=== PATIENT | female | born 1970 | race Caucasian/White ===

== ENCOUNTER 2023-12-06 10:32 | Emergency (ER) | payer MEDICARE, OTHER, SELFPAY ==
[2023-12-06 10:57] VITALS: BP 146/75
--- NOTE | 2023-12-06 11:56 | ED.GENMED ---
History of Present Illness
<Tanvi Jorge PA-C - Last Filed: 12/06/23 18:19>
General
Chief Complaint: Urinary Symptoms
Source: patient
Exam Limitations: none
Time Seen by Provider: 12/06/23 11:45
Nursing documentation reviewed up to this point in time: agreed with
Travel History
Have you had any contact with someone who has COVID-19?: No
Do you have any symptoms of coronavirus? Fever > 100 degrees, chills, cough, shortness of breath, sore throat, loss of taste or smell, muscle aches, or headache?: No
History of Present Illness
History of Present Illness:
This is a 53-year-old female with past medical history of nephrolithiasis, A-fib on Eliquis, uterine cancer status post total hysterectomy, presenting to the ER today with pelvic pain x 2 weeks. Patient was seen by her family doctor 2 weeks ago and
was initially told she did not have a UTI. She was called back a few days later and was told she had a UTI and had E. coli on her culture. Patient states that she was started on Macrobid for twice a day for 5 days. She states that she finished
the course and she still had symptoms. She called her family doctor and was started again on another course of Macrobid, and she is 3 days into that, still with no improvement in symptoms. She denies fevers or chills, flank pain, nausea or
vomiting, dysuria, vaginal discharge, vaginal pain. Does admit to urinary urgency at times. Patient denies diarrhea/constipation.
Past History
<Tanvi Jorge PA-C - Last Filed: 12/06/23 18:19>
Past History
ED Past Medical History: Arrthythmia (Atrial fib) and Other (History of kidney stones, IBS)
ED Past Surgical History: Gynecological (Hysterectomy)
Social History
Tobacco: Former smoker
Alcohol: None
Drug: None
Personal:
Living: with family
Employment: Employed
Family History
Family History: Other (Noncontributory)
Review of Systems
<Tanvi Jorge PA-C - Last Filed: 12/06/23 18:19>
Review of Systems
All Other Systems: ROS reviewed and negative except as documented in HPI and ROS
Phy Exam
<Tanvi Jorge PA-C - Last Filed: 12/06/23 18:19>
Physical Exam
Physical Exam:
Vitals: vital signs are stable, patient is afebrile
General: Patient is well-appearing and in no acute distress
Skin: warm and dry, no rashes or lesions
Cardiac: regular rate and rhythm, no murmurs
Pulm: normal respiratory effort
Abdomen: no abdominal tenderness
Neuro: AAOx3. CN II-XII intact.
Course
<Tanvi Jorge PA-C - Last Filed: 12/06/23 18:19>
Orders/Labs/Results
Orders:
Orders
12/06/23 11:55
Basic Metabolic Panel Urgent
Complete Blood Count/With Diff Urgent
Urinalysis Reflex To Culture Urgent
Date Specimen was Collected: 12/06/23
Time Specimen was Collected: 11:20
Urine Culture Urgent
ZOYA Source: U
Specimen Description:
Date Specimen was Collected: 12/06/23
Time Specimen was Collected: 11:20
12/06/23 12:48
CT Abd/pelvis W Iv Cont Urgent
Reason For Exam: persistent pelvic pain, hx of total hysterectomy
12/06/23 13:20
Potassium Urgent
12/06/23 14:44
Add On - Microbiology Urgent
Tests Added?: urine culture
Abnormal Lab Results
12/06/23
11:55
Absolute Monos (auto) 0.7 H 10^3/uL
(0.1-0.6)
Sodium 134 L mmol/L
(135-145)
BUN 20 H mg/dl
(7-17)
Creatinine 0.5 L mg/dL
(0.6-1.0)
Glucose 224 H mg/dl
(70-99)
Urine Glucose 3+ A
(Negative)
12/06/23 11:55
12/06/23 13:20
Vital Signs
Initial and Last Documented VS:
Initial Vital Signs
Temp Pulse Resp BP Pulse Ox
98.6 F 70 16 146/75 98
12/06/23 10:57 12/06/23 10:57 12/06/23 10:57 12/06/23 10:57 12/06/23 10:57
Last Documented Vital Signs
Temp Pulse Resp BP Pulse Ox
98.6 F 70 16 146/75 98
12/06/23 10:57 12/06/23 10:57 12/06/23 10:57 12/06/23 10:57 12/06/23 10:57
<Bryon Sanchez DO - Last Filed: 12/06/23 15:40>
Orders/Labs/Results
Orders:
Orders
12/06/23 11:55
Basic Metabolic Panel Urgent
Complete Blood Count/With Diff Urgent
Urinalysis Reflex To Culture Urgent
Date Specimen was Collected: 12/06/23
Time Specimen was Collected: 11:20
Urine Culture Urgent
ZOYA Source: U
Specimen Description:
Date Specimen was Collected: 12/06/23
Time Specimen was Collected: 11:20
12/06/23 12:48
CT Abd/pelvis W Iv Cont Urgent
Reason For Exam: persistent pelvic pain, hx of total hysterectomy
12/06/23 13:20
Potassium Urgent
12/06/23 14:44
Add On - Microbiology Urgent
Tests Added?: urine culture
Abnormal Lab Results
12/06/23
11:55
Absolute Monos (auto) 0.7 H 10^3/uL
(0.1-0.6)
Sodium 134 L mmol/L
(135-145)
BUN 20 H mg/dl
(7-17)
Creatinine 0.5 L mg/dL
(0.6-1.0)
Glucose 224 H mg/dl
(70-99)
Urine Glucose 3+ A
(Negative)
12/06/23 11:55
12/06/23 13:20
Vital Signs
Initial and Last Documented VS:
Initial Vital Signs
Temp Pulse Resp BP Pulse Ox
98.6 F 70 16 146/75 98
12/06/23 10:57 12/06/23 10:57 12/06/23 10:57 12/06/23 10:57 12/06/23 10:57
Last Documented Vital Signs
Temp Pulse Resp BP Pulse Ox
98.6 F 70 16 146/75 98
12/06/23 10:57 12/06/23 10:57 12/06/23 10:57 12/06/23 10:57 12/06/23 10:57
<Tanvi Jorge PA-C - Last Filed: 12/06/23 18:19>
MDM/Problems Addressed
Differential Diagnosis Includes:
ddx include urinary tract infection, interstitial cystitis, cystocele, rectocele
MDM/Problems Addressed:
pelvic pressure

Chronic conditions affecting care: HTN, Arrhythmia (afib), Cancer (uterine cancer) and Other (nephrolithiasis)
Acute Exacerbation and/or Progression of Chronic Illness: HTN
<Tanvi Jorge PA-C - Last Filed: 12/06/23 18:19>
*Pulse Oximetry
Patient hypoxic: no
*Critical Care Note
Total Time (30-74mins, 75-104mins- exclusive of procedures): Not Applicable
Data Reviewed
Review of Other/Old Records Reveals: Records (reviewed ER physician documentation from 09/23/2023, reviewed ER Physician documentation from 08/21/2023)
Source: patient and records
Prescriptions/Medications Considered But Not Given:
considered switching antibiotic to Keflex however urinalysis does not show evidence of UTI
<Tanvi Jorge PA-C - Last Filed: 12/06/23 18:19>
Patient Management
Escalation/DeEscalation of care consider admission/obs:
53-year-old female with past medical history of nephrolithiasis, A-fib on Eliquis presenting emergency department today with pelvic pressure for the past 2 weeks. Patient states that she originally was seen by her PCP 2 weeks ago, where she tested
positive for UTI, and was started on a course of Macrobid. Patient states that she was on this for 5 days. Here in the emergency department, she is afebrile, and her vital signs are stable. Her CBC does not show leukocytosis. Her urinalysis did
not show any evidence of UTI. Spoke and reviewed case with Dr. Sanchez who recommends CT of the pelvis for further evaluation. CT revealed no acute abnormality to explain patient's symptoms. I suspect her symptoms are a result of pelvic
floor weakness. We will have patient follow-up with urogynecology. In addition, she had high per glycemia on her CMP and some glucose in her urine. Patient has no diabetes diagnosis. Educated patient on the importance of having follow-up on this
finding, patient will follow-up with her PCP regarding this. Patient is wishing to establish a new PCP, we gave her information for [facility]. Patient will for discharge
ED Attending Note
<Tanvi Jorge PA-C - Last Filed: 12/06/23 18:19>
-
Portions of this chart may have been created with voice recognition software.� Occasional wrong word or��sound alike� substitutions may have occurred due to the inherent limitations of voice recognition software.
<Bryon Sanchez DO - Last Filed: 12/06/23 15:40>
ED Attending Note
Patient seen and examined by attending physician: Yes
I performed the substantive portion of visit, reviewed & personally made and approve the management plan that is documented in note by myself or JOAQUINA.: Yes
ED Attending Note:
Patient is a 53-year-old female who presents to the emergency department complaining of urinary urgency and pressure in her lower abdomen. Patient has a history of hysterectomy with bilateral salpingo-oophorectomy secondary to uterine cancer
approximately 4 years ago. Patient started with the symptoms few weeks ago and was treated with Macrobid because of UTI secondary to E. coli. Patient continued symptoms and was treated with a second course of Macrobid. Patient now presents
because of ongoing issues. Patient denies fever or chills. Patient denies any back or abdominal pain other than lower abdominal pressure. Patient denies nausea, vomiting or diarrhea. Patient denies any dysuria or hematuria but admits to urgency
and frequency. Physical exam patient is not in any distress. Patient lab work is unremarkable including the urine. However will do a urine culture at the patient's request. His CT scan is unremarkable. I suspect the patient has a cystocele as
she has had 2 vaginal deliveries along with a hysterectomy. Patient referred to urogynecology for further evaluation. Patient's vital signs are stable. Patient's sugar is elevated which has been running high recently but I have suggested the
patient return to see her family doctor as she might require medical intervention
Discharge Plan
Departure
Patient Disposition: Home (Routine Discharge)
Date of Disposition: 12/06/23
Time of Disposition: 15:23
Patient with high blood pressure during this ER visit?: Yes
Condition: Good
Discharge Problem:
Pelvic pain
Instructions: High Blood Sugar, Adult (DC), Pelvic Pain, BLOOD PRESSURE
Prescriptions:
No Action
Eliquis 5 MG tablet
5 mg PO BID
flecainide
100 mg PO BID
metoprolol succinate
25 mg PO BID
magnesium
500 mg PO DAILY
Referrals:
Ofelia Dan, DO [Active] - Call in 1-3 days for appt
NONE,* [Family Provider] -
Activity Restrictions/Additional Instructions:
As discussed, please follow-up with urogynecology. Please return to the emergency department should you experience
Fevers or chills, flank pain, acute worsening of your pain, or other concerning signs or symptoms
Your blood sugar today was high. Is important that you follow-up on this finding with your primary care provider. This may be a sign of prediabetes.
Number for [facility]: [phone]
Number for urogynecology: [phone]
Interventions
Interventions:
*Risk Screen - Suicide Last Done: 12/06/23 15:09
*General Assessment Last Done: 12/06/23 15:09
*Neglect/Abuse Screening Last Done: 12/06/23 15:09
*ED COVID-19 Vaccine History Last Done: 12/06/23 10:57
*Nursing Disposition Last Done: 12/06/23 15:10
ED-Female Genitourinary Assessment Last Done: 12/06/23 12:00
Discharge Date and Time
Discharge Date/Time: 12/06/23 15:38
[2023-12-06 12:07] LABS: % Basophils 0.8 % (0-2); % Eosinophils 3.2 % (0-6); % Immature Granulocytes 0.3 % (0-0.5); % Lymphocytes 30.8 % (20.5-51.1); % Neutrophils 57.9 % (42.2-75.2); Absolute Basophils 0.1 10^3/uL (0-0.2); Absolute Eosinophils 0.3 10^3/uL (0-0.7); Absolute Lymphocytes 2.9 10^3/uL (1.2-3.4); Absolute Monocytes 0.7 10^3/uL (0.1-0.6); Absolute Neutrophils 5.5 10^3/uL (1.4-6.5); Hematocrit 43.7 % (37.0-47.0); Hemoglobin 14.4 g/dL (12.0-16.0); Mean Corpuscular Hgb 28.1 pg (27.0-31.0); Mean Corpuscular Volume 85.2 fL (81.0-99.0); Mean Platelet Volume 8.9 fL (7.4-10.4); Nucleated Red Blood Cells % 0 %; Platelet Count 320 10^3/uL (130-400); Red Blood Cell Count 5.13 10^6/uL (4.20-5.40); Red Cell Dist. Width 12.7 % (11.5-14.5); White Blood Cell Count 9.5 10^3/uL (4.8-10.8)
[2023-12-06 12:10] LABS: Urine Albumin Negative (Neg - Trace); Urine Bilirubin Negative (Negative); Urine Character Clear (Clear); Urine Color Yellow; Urine Glucose 3+ (Negative); Urine Ketone Negative (Negative); Urine Leukocyte Negative (Negative); Urine Nitrite Negative (Negative); Urine Occult Blood Negative (Negative); Urine Urobilinogen Negative (Neg - 1+)
[2023-12-06 12:27] LABS: Blood Urea Nitrogen 20 mg/dl (7-17); Calcium 9.3 mg/dl (8.4-10.2); Carbon Dioxide 25 mmol/L (22-30); Chloride 102 mmol/L (98-107); Glucose 224 mg/dl (70-99); Sodium 134 mmol/L (135-145); eGFR > 60.00
[2023-12-06 13:46] LABS: Potassium 3.9 mmol/L (3.5-5.1)
== END 2023-12-06 15:38 | disposition home or self-care (01) ==
LOC: EMR 10:32
PROVIDERS: Physician Assistant; EMERGENCY PHYSICIAN Emergency Medicine
DX: R10.2 Pelvic and perineal pain (principal); R03.0 Elevated blood-pressure reading, without diagnosis of hypertension; Z87.891 Personal history of nicotine dependence
CPT/HCPCS: 99285; 74177; 80048; 81003; 84132; 85025; 87086; Q9967

== ENCOUNTER 2023-12-26 09:18 | Emergency (ER) | payer MEDICARE, OTHER, SELFPAY ==
[2023-12-26 09:31] VITALS: BP 146/74
--- NOTE | 2023-12-26 10:07 | ED.GENMED ---
History of Present Illness
General
Chief Complaint: Heart Rate Problem
Source: patient
Exam Limitations: none
Time Seen by Provider: 12/26/23 09:53
Travel History
Have you had any contact with someone who has COVID-19?: No
Do you have any symptoms of coronavirus? Fever > 100 degrees, chills, cough, shortness of breath, sore throat, loss of taste or smell, muscle aches, or headache?: No
History of Present Illness
History of Present Illness:
See MDM
Past History
Past History
ED Past Medical History: Arrthythmia (Atrial fib) and Other (History of kidney stones, IBS)
ED Past Surgical History: Gynecological (Hysterectomy)
Social History
Tobacco: Former smoker
Alcohol: None
Drug: None
Personal:
Living: with family
Employment: Employed
Family History
Family History: Other (Noncontributory)
Phy Exam
Physical Exam
Physical Exam:
See MDM
Course
Orders/Labs/Results
Orders:
Orders
12/26/23 09:37
Electrocardiogram (*1) Urgent
Reason for Study: Chest Pain
EKG- Treatment ONCE
12/26/23 10:11
Complete Blood Count/With Diff Urgent
Comprehensive Metabolic Panel Urgent
TSH Reflex To Free T4 Urgent
12/26/23 10:51
0.9% Sodium Chloride 1000 ml [Nss] 1,000 ml IV BOLUS
Abnormal Lab Results
12/26/23
10:11
Creatinine 0.5 L mg/dL
(0.6-1.0)
Glucose 185 H mg/dl
(70-99)
Alkaline Phosphatase 139 H U/L
(38-126)
12/26/23 10:11
12/26/23 10:11
Vital Signs
Initial and Last Documented VS:
Initial Vital Signs
Temp Pulse Resp BP Pulse Ox
98.3 F 61 20 146/74 96
12/26/23 09:31 12/26/23 09:31 12/26/23 09:31 12/26/23 09:31 12/26/23 09:31
Last Documented Vital Signs
Temp Pulse Resp BP Pulse Ox
98.3 F 54 11 112/65 95
12/26/23 09:31 12/26/23 11:45 12/26/23 11:45 12/26/23 10:51 12/26/23 11:45
MDM/Problems Addressed
Differential Diagnosis Includes:
HPI and MDM Narrative:
53-year-old female presenting for evaluation of palpitations. This has been ongoing since this morning. Patient does have a history of A-fib. She came in because her surveillance monitor was telling her that she has supraventricular ectopy. Patient
states she has never known of having this and got worried. She does admit that she has been sick recently and been under a lot of stress
On evaluation, patient well-appearing nontoxic. EKG does show evidence of PVCs. She denies chest pain or shortness of breath. She denies any new medications.
Physical exam
General: Well appearing and non-toxic
HEENT: protecting airway. Mild nasal congestion. Dry mucous membranes
Neck: appears supple
CV: No evidence of cyanosis. Regular rate and rhythm
Resp: No accessory muscle use. Lungs clear
Abd: Non-distended
Extremities: No deformities. No leg edema
Neuro: alert
Psych: Normal affect
Skin: Intact
Problems Addressed including Acute and Chronic Conditions affecting care:
1. Palpitations
Acuity: acute
Prognosis: stable
Details: Patient likely having symptomatic PVCs. She is already on a beta-carlton. She has a history of A-fib but not currently in A-fib. Will obtain basic blood work but discussed reassurance and follow-up with cardiology
2. Hyperglycemia
Acuity: acute
Prognosis: stable
Details: Patient states she will follow-up with her doctor
3. Dehydration
Acuity: acute
Prognosis: stable
Details: Likely in the setting of increased urination from uncontrolled blood sugar. Will give IV fluids
Updates
Patient feeling better after IV fluids. Discussed talking to PCP about better blood sugar control and return precautions
Differential Diagnosis (but not limited to): Hypothyroidism, palpitations, paroxysmal A-fib, PVCs
Testing considered: CXR but lungs clear
Drug therapy (if applicable): OTC meds, please see d/c instruction regarding Rx drugs
Amount and/or Complexity of Data Reviewed
Clinical info obtained from: Patient
External data reviewed: N/A
Labs I independently reviewed (but not limited to): Hyperglycemia
Radiology: N/A
Pulse Ox: not hypoxic
EKG independently reviewed: Sinus rhythm, PVCs, no STEMI
[employer] Specialist: Sinus rhythm
Critical Care: N/A
Risk of Complication:
Social Determinants of health: Good social support
Discussed with other providers: N/A
Escalation of Care includes Admit/Obs: After being observed in the Emergency Department, pt stable for discharge.
Occasional wrong word or 'sound a like' substitutions may have occurred due to the inherent limitations of voice recognition software. Read the chart carefully and recognize, using context, where substitutions have occurred.
*Critical Care Note
Total Time (30-74mins, 75-104mins- exclusive of procedures): Not Applicable
ED Attending Note
-
Portions of this chart may have been created with voice recognition software.� Occasional wrong word or��sound alike� substitutions may have occurred due to the inherent limitations of voice recognition software.
Discharge Plan
Departure
Patient Disposition: Home (Routine Discharge)
Date of Disposition: 12/26/23
Time of Disposition: 12:21
Patient with high blood pressure during this ER visit?: No
Discharge Problem:
Palpitations, Acute dehydration, Hyperglycemia
Instructions: Palpitations (DC)
Prescriptions:
No Action
Eliquis 5 MG tablet
5 mg PO BID
flecainide
100 mg PO BID
metoprolol succinate
25 mg PO BID
magnesium
500 mg PO DAILY
Referrals:
Kat Garcias CRNP [Family Provider] -
Activity Restrictions/Additional Instructions:
Please return for any worsening symptoms.
You may return at any time if you have further concerns.
Please follow up with your doctor at the first available appointment, preferably this week.
Please talk to your doctor about your elevated blood sugar as well.
Thank you for choosing [facility].
Interventions
Interventions:
*Risk Screen - Suicide Last Done: 12/26/23 09:31
*General Assessment Last Done: 12/26/23 09:31
*Neglect/Abuse Screening Last Done: 12/26/23 09:48
*ED COVID-19 Vaccine History Last Done: 12/26/23 09:48
ED- Cardiac Assessment Last Done: 12/26/23 09:59
ED- Pulmonary Assessment Last Done: 12/26/23 10:00
[2023-12-26 10:19] LABS: % Basophils 0.7 % (0-2); % Eosinophils 3.2 % (0-6); % Immature Granulocytes 0.5 % (0-0.5); % Lymphocytes 36.2 % (20.5-51.1); % Monocytes 6.4 % (1.7-9.3); Absolute Basophils 0.1 10^3/uL (0-0.2); Absolute Eosinophils 0.3 10^3/uL (0-0.7); Absolute Lymphocytes 2.9 10^3/uL (1.2-3.4); Absolute Monocytes 0.5 10^3/uL (0.1-0.6); Absolute Neutrophils 4.3 10^3/uL (1.4-6.5); Hematocrit 40.9 % (37.0-47.0); Hemoglobin 13.5 g/dL (12.0-16.0); Mean Corpuscular Hgb 27.7 pg (27.0-31.0); Mean Corpuscular Volume 83.8 fL (81.0-99.0); Mean Platelet Volume 8.7 fL (7.4-10.4); Nucleated Red Blood Cells % 0 %; Platelet Count 307 10^3/uL (130-400); Red Blood Cell Count 4.88 10^6/uL (4.20-5.40); Red Cell Dist. Width 12.7 % (11.5-14.5); White Blood Cell Count 8.1 10^3/uL (4.8-10.8)
[2023-12-26 10:26] VITALS: BP 94/68
[2023-12-26 10:34] LABS: ALT (SGPT) 17 U/L (0-35); AST (SGOT) 24 U/L (14-36); Albumin 3.8 g/dl (3.5-5.0); Alkaline Phosphatase 139 U/L (38-126); Blood Urea Nitrogen 14 mg/dl (7-17); Calcium 8.8 mg/dl (8.4-10.2); Carbon Dioxide 26 mmol/L (22-30); Chloride 104 mmol/L (98-107); Glucose 185 mg/dl (70-99); Potassium 3.9 mmol/L (3.5-5.1); Sodium 135 mmol/L (135-145); Total Bilirubin 0.4 mg/dl (0.2-1.3); Total Protein 6.5 g/dl (6.3-8.2); eGFR > 60.00
[2023-12-26 10:51] VITALS: BP 112/65
[2023-12-26] MEDS: NSS 1000 IV (11:02)
[2023-12-26 11:04] LABS: TSH Reflex To Free T4 1.39 uIU/ml (0.47-4.68)
[2023-12-26 11:50] VITALS: BP 116/59
--- NOTE | 2023-12-26 12:35 | EDRN ---
Per Dr Emanuel- check you BP yonite BEFORE taking your metoprolol. If the HR is less than 50 OR BP is less than 100/sys.. call PCP- they may suggest only a 1/2 tab
== END 2023-12-26 12:36 | disposition home or self-care (01) ==
LOC: EMR 09:18
PROVIDERS: EMERGENCY PHYSICIAN Student in an Organized Health Care Education/Training Program; FAMILY PHYSICIAN Nurse Practitioner Family
DX: R00.2 Palpitations (principal); E86.0 Dehydration; R73.9 Hyperglycemia, unspecified
CPT/HCPCS: 99284; 96360; 80053; 84443; 85025; 93005

== ENCOUNTER 2024-02-21 15:18 | Inpatient (IN) | payer MEDICARE, OTHER, SELFPAY ==
[2024-02-21] VITALS (20 sets, daily range): BP systolic 88–142; BP diastolic 47–85; BMI 36.2
[2024-02-21 08:02] LABS: % Basophils 1.1 % (0-2); % Eosinophils 2.7 % (0-6); % Immature Granulocytes 0.4 % (0-0.5); % Lymphocytes 33.6 % (20.5-51.1); % Monocytes 6.9 % (1.7-9.3); % Neutrophils 55.3 % (42.2-75.2); Absolute Basophils 0.1 10^3/uL (0-0.2); Absolute Eosinophils 0.2 10^3/uL (0-0.7); Absolute Lymphocytes 2.7 10^3/uL (1.2-3.4); Absolute Monocytes 0.6 10^3/uL (0.1-0.6); Absolute Neutrophils 4.5 10^3/uL (1.4-6.5); Hematocrit 42.5 % (37.0-47.0); Hemoglobin 14.2 g/dL (12.0-16.0); Mean Corp Hgb Conc. 33.4 g/dL (33.0-37.0); Mean Corpuscular Hgb 28.2 pg (27.0-31.0); Mean Corpuscular Volume 84.5 fL (81.0-99.0); Nucleated Red Blood Cells % 0 %; Platelet Count 288 10^3/uL (130-400); Red Blood Cell Count 5.03 10^6/uL (4.20-5.40); Red Cell Dist. Width 13.2 % (11.5-14.5); White Blood Cell Count 8.1 10^3/uL (4.8-10.8)
[2024-02-21 08:08] LABS: Urine Albumin Negative (Neg - Trace); Urine Bilirubin Negative (Negative); Urine Character Clear (Clear); Urine Color Yellow; Urine Glucose Negative (Negative); Urine Ketone Negative (Negative); Urine Leukocyte Negative (Negative); Urine Nitrite Negative (Negative); Urine Occult Blood Negative (Negative); Urine Urobilinogen Negative (Neg - 1+)
[2024-02-21 08:09] LABS: ALT (SGPT) 15 U/L (0-35); AST (SGOT) 20 U/L (14-36); Albumin 3.7 g/dl (3.5-5.0); Alkaline Phosphatase 123 U/L (38-126); Blood Urea Nitrogen 13 mg/dl (7-17); Calcium 8.8 mg/dl (8.4-10.2); Carbon Dioxide 25 mmol/L (22-30); Chloride 107 mmol/L (98-107); Glucose 191 mg/dl (70-99); Potassium 3.9 mmol/L (3.5-5.1); Sodium 137 mmol/L (135-145); Total Bilirubin 0.3 mg/dl (0.2-1.3); Total Protein 6.3 g/dl (6.3-8.2); eGFR > 60.00
[2024-02-21] MEDS: CARDIZEM 125 IV ×2 (08:11→18:41)
[2024-02-21] MEDS: CARDIZEM 10 MG IV (08:11)
[2024-02-21] MEDS: NSS 1000 IV (08:20)
--- NOTE | 2024-02-21 08:22 | ED.GENMED ---
Addendum entered and electronically signed by Marquise Prasad DO 02/21/24 14:18:
53-year-old female presents with atrial flutter. Attempted Cardizem with success in controlling her rate but unable to convert her. Offered emergency department cardioversion but patient is concerned about risks and would like to forego at this
time. She states in the past she has been able to convert on her own. Admit. Continue Cardizem. Continue Eliquis
Original Note:
History of Present Illness
General
Chief Complaint: Heart Rate Problem
Source: patient and family
Exam Limitations: none
Time Seen by Provider: 02/21/24 07:13
Travel History
Have you had any contact with someone who has COVID-19?: No
Do you have any symptoms of coronavirus? Fever > 100 degrees, chills, cough, shortness of breath, sore throat, loss of taste or smell, muscle aches, or headache?: No
History of Present Illness
History of Present Illness:
This is a 53-year-old female presents for evaluation of being in atrial fibrillation. Patient states she woke up this morning and felt like she did when she is in atrial fibrillation. Patient is on Eliquis. She is due for morning medications at
11 AM. The patient is also on flecainide. Patient admits that she is in between cardiologists. She used her home heart monitor and it noted irregularity. Her heart rate was up to the 130s at home. She states that while but she mostly feels
normal but sometimes with walking she feels little short of breath. No vomiting.
Past History
Past History
ED Past Medical History: Arrthythmia (Atrial fib) and Other (History of kidney stones, IBS)
ED Past Surgical History: Gynecological (Hysterectomy)
Social History
Tobacco: Former smoker
Alcohol: None
Drug: None
Personal:
Living: with family
Employment: Employed
Family History
Family History: Other (Noncontributory)
Phy Exam
Physical Exam
Physical Exam:
CONSTITUTIONAL Patient alert and oriented to person, place and time. Well-appearing. Vital signs reviewed.
HEAD atraumatic, normocephalic.
EYES eyelids normal to inspection, Extraocular muscles intact, Conjunctiva normal, Sclera normal.
NECK normal range of motion, Trachea midline, no jugular venous distention.
RESPIRATORY CHEST No respiratory distress noted, Chest expansion equal, Bilateral breath sounds clear.
CARDIOVASCULAR irregular, a flutter with variable block on telemetry, no notable murmurs.
BACK normal inspection, no obvious deformities
UPPER EXTREMITY range of motion normal, Motor strength normal, no cyanosis, no edema.
LOWER EXTREMITY range of motion normal, Motor strength normal, no cyanosis, no edema.
NEURO Speech normal, No focal motor deficits, Nilesh coma scale 15, Memory normal, Cranial Nerves intact to screening exam.
SKIN skin warm, dry, and normal in color.
PSYCHIATRIC patient oriented to person place and time, Normal affect.
Course
Orders/Labs/Results
Orders:
Orders
02/21/24 06:32
Electrocardiogram (*1) Urgent
Reason for Study: Atrial Fibrillation
EKG- Treatment ONCE
02/21/24 07:40
Diltiazem 125 mg/125 ml Nss [Cardizem] 125 mg in 125 ml IV NOW
Initial dose in mg/hr, then titrate:: 5
Titrate to keep:: Heart rate 80-100 bpm
Titrate by mg/hr:: 5 mg/hr
Frequency of titrations (minutes):: 15
Maximum dose in mg/hr:: 15
Diltiazem HCl [Cardizem] 10 mg IV NOW STA
02/21/24 07:43
Complete Blood Count/With Diff Urgent
Comprehensive Metabolic Panel Urgent
Magnesium Urgent
02/21/24 07:59
Urinalysis Reflex To Culture Urgent
Date Specimen was Collected: 02/21/24
Time Specimen was Collected: 07:46
02/21/24 08:11
0.9% Sodium Chloride 1000 ml [Nss] 1,000 ml IV BOLUS
Abnormal Lab Results
02/21/24
07:43
Creatinine 0.4 L mg/dL
(0.6-1.0)
Glucose 191 H mg/dl
(70-99)
02/21/24 07:43
02/21/24 07:43
Vital Signs
Initial and Last Documented VS:
Initial Vital Signs
Temp Pulse Resp BP Pulse Ox
99.2 F 111 20 142/83 96
02/21/24 06:38 02/21/24 06:38 02/21/24 06:38 02/21/24 06:38 02/21/24 06:38
Last Documented Vital Signs
Temp Pulse Resp BP Pulse Ox
99.2 F 123 17 109/73 92
02/21/24 06:38 02/21/24 08:11 02/21/24 07:45 02/21/24 08:11 02/21/24 07:45
MDM/Problems Addressed
MDM/Problems Addressed:
Atrial flutter
*Pulse Oximetry
Patient hypoxic: no
*EKG
Interpreted by ED Provider?: Yes
Interpretation: abnormal
Rate: tachycardiac
Rhythm: atrial flutter
[place]: normal axis
Ischemia: non-specific ST changes
*Manager Call Interpretation
Rate: tachycardiac
Interpretation: abnormal
Rhythm: atrial flutter
*Critical Care Note
Total Time (30-74mins, 75-104mins- exclusive of procedures): Not Applicable
Data Reviewed
Source: patient
Prescriptions/Medications Considered But Not Given:
Considered IV flecainide but will continue her normal flecainide dose
Further Testing Considered But Not Given:
Consider D-dimer but patient on Eliquis
ED Attending Note
-
Portions of this chart may have been created with voice recognition software.� Occasional wrong word or��sound alike� substitutions may have occurred due to the inherent limitations of voice recognition software.
Discharge Plan
Departure
Prescriptions:
No Action
flecainide 100 mg Tablet
100 mg PO BID
magnesium oxide 500 mg magnesium Tablet
500 mg PO HS
metoprolol succinate 25 mg Tablet Extended Release 24 Hr
25 mg PO BID
carboxymethylcellulose sodium [Refresh] 1 % Drops, Liquid Gel
1 - 3 drp BOTH EYES QIDPRN PRN (Reason: dry eyes)
cholecalciferol (vitamin D3) 25 mcg (1,000 unit) Tablet
25 mcg PO DAILY
Eliquis 5 mg Tablet
5 mg PO Q12H
Referrals:
Riana Parsons CRNP [Family Provider] -
Interventions
Interventions:
*General Assessment Last Done: 02/21/24 06:45
*Neglect/Abuse Screening Last Done: 02/21/24 06:46
*ED COVID-19 Vaccine History Last Done: 02/21/24 06:45
Discharge Date and Time
Print Language: FAROESE
[2024-02-21] MEDS: TAMBOCOR 100 MG PO ×2 (10:50→21:02)
[2024-02-21] MEDS: CARDIZEM 20 MG IV (12:20)
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
[2024-02-21] MEDS: ELIQUIS 5 MG PO (18:24)
[2024-02-21 21:01] LABS: Glucose - Point of Care 240 mg/dl (70-99)
[2024-02-21] MEDS: NOVOLOG FLEXPEN-LOW RESISTANCE SC (21:05)
[2024-02-21] MEDS: MAGNESIUM OXIDE 500 MG PO (21:05)
[2024-02-21] MEDS: TYLENOL 650 MG PO (23:00)
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
[2024-02-22] VITALS (9 sets, daily range): BP systolic 87–117; BP diastolic 54–80
[2024-02-22] MEDS: CARDIZEM 125 IV (03:17)
[2024-02-22 03:24] LABS: Hematocrit 43.5 % (37.0-47.0); Hemoglobin 14.8 g/dL (12.0-16.0); Mean Corpuscular Hgb 28.6 pg (27.0-31.0); Mean Platelet Volume 9.1 fL (7.4-10.4); Platelet Count 325 10^3/uL (130-400); Red Blood Cell Count 5.18 10^6/uL (4.20-5.40); Red Cell Dist. Width 13.2 % (11.5-14.5); White Blood Cell Count 10.5 10^3/uL (4.8-10.8)
[2024-02-22 04:09] LABS: TSH 2.43 uIU/ml (0.47-4.68)
--- NOTE | 2024-02-22 05:54 | PTCARENOTE ---
4.57 sec pause and converted to SB @ 0530 HR 50s BP 80s-90s/60s. pt sleeping at the time asymptomatic. Dr. Miller aware
[2024-02-22] MEDS: ELIQUIS 5 MG PO ×2 (06:05→17:18)
[2024-02-22 07:35] LABS: Glucose - Point of Care 171 mg/dl (70-99)
--- NOTE | 2024-02-22 07:41 | W.PN.HOSP.TC ---
Addendum entered and electronically signed by Aimee Rodriguez MD 02/22/24 16:45:
pt seen and examined independently--agree with plan as set forth by Dr. Ruano
GENERAL: well developed, well nourished, female in no apparent distress
HEENT: NC--scar on right forehead--blind in right eye
HEART: regular rate and rhythm with ectopy, +S1, +S2
LUNGS : clear to auscultation bilaterally
ABDOM: soft, nontender, nondistended, + bowel sounds
EXT: no cyanosis, clubbing, or edema
Symptomatic Atrial flutter/atrial fibrillation --pt feels uncomfortable when she is in this--converted back to NSR on her own--off cardizem drip--apprec cards--cont flecanide, metoprolol, Eliquis--ECHO essentially WNL--large pleural effusion noted
but exam and CXR not consistent
Hyperglycemia (likely now type 2 DM)---Blood glucose 190 on admission--hemoglobin A1c 7.5--Low-dose insulin sliding scale--spoke with pt regarding starting metformin or glimepiride--pt hesitant
HLD--pt hesitant to start statins
DVT prophylaxis-continue Eliquis
code status -- FULL CODE
anticipate d/c tomorrow
Original Note:
Today's Communication/Plan
-
Discharge tomorrow
Assessment / Plan
Assessment / Plan
IMPRESSION:
Atrial Flutter/afib
Hyperglycemia
Hypercholesterolemia
PLAN:
Atrial flutter/atrial fibrillation
Patient is hemodynamically stable
Sinus rhythm, converted on her own on Cardizem gtt
Off Cardizem drip
Discussed patient about discharge, patient was uncomfortable to go home today and would wait for another day.
Echo showed large left pleural effusion. Chest x-ray was unremarkable
Possible discharge tomorrow
Continue flecainide 100 mg PO BID for rhythm control
TSH normal.
Follow-up outpatient with cardiology
EKG 02/20 on admission- ATRIAL FLUTTER WITH VARIABLE A-V BLOCK
Type 2 diabetes mellitus
A1c 7.5
Discussed with patient about options #1 metformin No. 2 glimepiride
Patient was not happy with the medication list as she has side effects with metformin
In the past she was diagnosed with diabetes and tried to control it with diet
Further discussion with outpatient PCP
Low-dose insulin sliding scale
Hypercholesterolemia
Increased TG, increased cholesterol
ASCVD risk less than 7.5%
Patient is a candidate for statin therapy for uncontrolled diabetes
Further discussion with outpatient PCP
DVT prophylaxis-continue Eliquis
Anticipated Discharge: Within 24 hours
Subjective/Interval History
-
date of Service: February 22, 2024
Patient was in atrial flutter overnight and converted by herself this morning at 5:30 AM.
Objective Data
-
Labs:
Laboratory Results
02/22/24 02/22/24
03:14 07:03
WBC 10.5
Hgb 14.8
Hct 43.5
Plt Count 325
Sodium Cancelled Pending
Potassium Cancelled Pending
Chloride Cancelled Pending
Carbon Dioxide Cancelled Pending
BUN Cancelled Pending
Creatinine Cancelled Pending
Glucose Cancelled Pending
Calcium Cancelled Pending
Vital Signs:
Vital Signs
Temp Pulse Resp BP Pulse Ox
98.2 F 61 18 91/63 93
02/22/24 03:23 02/22/24 06:53 02/22/24 03:23 02/22/24 06:53 02/22/24 03:23
Review of Systems
-
History Source: Patient
All other systems: Reviewed and negative
Physical Exam
-
General: Comfortable and Conversant
HEENT: Normocephalic and Atraumatic
Respiratory: Clear to Auscultation
Cardiac: Regular Rhythm and S1/S2
GI: Soft, Nontender and Nondistended
Musculoskeletal: No Edema
Neuro: AO x 3
Data Reviewed
-
Medical Tests (Nuc Med, Echo etc): Report Reviewed by me and Discussed with Physician
Labs: Labs Reviewed by me and Discussed with Physician
[2024-02-22] MEDS: TAMBOCOR 100 MG PO ×2 (08:00→19:42)
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
[2024-02-22] MEDS: TOPROL XL 25 MG PO ×2 (09:17→19:42)
[2024-02-22] MEDS: NOVOLOG FLEXPEN-LOW RESISTANCE 1 UNITS SC (09:18)
[2024-02-22 09:41] LABS: Blood Urea Nitrogen 12 mg/dl (7-17); Calcium 9.1 mg/dl (8.4-10.2); Carbon Dioxide 25 mmol/L (22-30); Chloride 105 mmol/L (98-107); Estimated Creatinine Clearance 115 ml/min; Glucose 170 mg/dl (70-99); HDL Cholesterol 39 mg/dl; LDL Cholesterol, Calculated 126 mg/dl; Potassium 3.8 mmol/L (3.5-5.1); Sodium 134 mmol/L (135-145); Total Cholesterol 202 mg/dl (50-199); Triglyceride 188 mg/dl (10-149); Very Low Density Lipoprotein 37 mg/dl (0-30); eGFR > 60.00
[2024-02-22 10:25] LABS: Glycohemoglobin (HgbA1c) 7.5 % (4.0-5.6)
--- NOTE | 2024-02-22 11:32 | CM ---
Chart reviewed. Patient is independent of ADLS, lives with her son and daughter in a 3 [address], 3 [address], 0 DME. Patient currently with no discharge needs. Plan is for the patient to return home. CM to follow
[2024-02-22 11:48] LABS: Glucose - Point of Care 263 mg/dl (70-99)
[2024-02-22] MEDS: NOVOLOG FLEXPEN-LOW RESISTANCE 3 UNITS SC (11:58)
[2024-02-22 16:20] LABS: Glucose - Point of Care 137 mg/dl (70-99)
[2024-02-22] MEDS: NOVOLOG FLEXPEN-LOW RESISTANCE SC (17:18)
--- NOTE | 2024-02-22 18:05 | PTCARENOTE ---
Pt NSR on monitor. Ambulating in room and in hallway. Pt denies pain, denies sob. See worklist for VS/I and O and assessments.
[2024-02-22 21:15] LABS: Glucose - Point of Care 153 mg/dl (70-99)
--- NOTE | 2024-02-22 21:53 | PTCARENOTE ---
Denies any complaints of pain or discomfort. Ambulating in hallways. SR in the 70's on the monitor.
[2024-02-22] MEDS: MAGNESIUM OXIDE 500 MG PO (22:18)
[2024-02-23 04:33] VITALS: BP 100/57
[2024-02-23 05:04] LABS: Hematocrit 41.5 % (37.0-47.0); Hemoglobin 13.6 g/dL (12.0-16.0); Mean Corp Hgb Conc. 32.8 g/dL (33.0-37.0); Mean Corpuscular Hgb 28.3 pg (27.0-31.0); Mean Corpuscular Volume 86.5 fL (81.0-99.0); Mean Platelet Volume 9.2 fL (7.4-10.4); Platelet Count 276 10^3/uL (130-400); Red Cell Dist. Width 13.2 % (11.5-14.5); White Blood Cell Count 8.9 10^3/uL (4.8-10.8)
[2024-02-23 05:27] LABS: Blood Urea Nitrogen 16 mg/dl (7-17); Calcium 9.4 mg/dl (8.4-10.2); Carbon Dioxide 24 mmol/L (22-30); Chloride 104 mmol/L (98-107); Estimated Creatinine Clearance 115 ml/min; Glucose 142 mg/dl (70-99); Potassium 3.8 mmol/L (3.5-5.1); Sodium 135 mmol/L (135-145); eGFR > 60.00
[2024-02-23] MEDS: ELIQUIS 5 MG PO (05:51)
[2024-02-23 05:56] VITALS: BMI 35.3
[2024-02-23 07:22] VITALS: BP 105/59
[2024-02-23 07:24] LABS: Glucose - Point of Care 180 mg/dl (70-99)
[2024-02-23] MEDS: TAMBOCOR 100 MG PO (07:37)
[2024-02-23] MEDS: TOPROL XL 25 MG PO (07:40)
[2024-02-23] MEDS: NOVOLOG FLEXPEN-LOW RESISTANCE 1 UNITS SC (09:01)
--- NOTE | 2024-02-23 09:10 | W.PN.HOSP.TC ---
Addendum entered and electronically signed by Aimee Rodriguez MD 02/23/24 12:40:
pt seen and examined independently--agree with plan as set forth by Dr. Ruano
GENERAL: well developed, well nourished, female in no apparent distress
HEENT: NC--scar on right forehead--blind in right eye
HEART: regular rate and rhythm with ectopy, +S1, +S2
LUNGS : clear to auscultation bilaterally
ABDOM: soft, nontender, nondistended, + bowel sounds
EXT: no cyanosis, clubbing, or edema
Symptomatic Atrial flutter/atrial fibrillation --pt feels uncomfortable when she is in this--converted back to NSR on her own--off cardizem drip--apprec cards--cont flecanide, metoprolol, Eliquis--ECHO essentially WNL--large pleural effusion noted
but exam and CXR not consistent
Hyperglycemia (likely now type 2 DM)---Blood glucose 190 on admission--hemoglobin A1c 7.5--Low-dose insulin sliding scale--spoke with pt regarding starting metformin or glimepiride--pt hesitant--will follow up as outpt to continue discussions
HLD--pt hesitant to start statins
DVT prophylaxis-continue Eliquis
code status -- FULL CODE
Original Note:
Today's Communication/Plan
-
Discharge today
Follow-up outpatient cardiology
Resume metoprolol and flecainide
Follow-up outpatient PCP for diabetes and hypercholesterolemia
Assessment / Plan
Assessment / Plan
IMPRESSION:
Atrial Flutter/afib
Hyperglycemia
Hypercholesterolemia
PLAN:
Atrial flutter/atrial fibrillation
Patient is hemodynamically stable
Off Cardizem drip
Patient remained in sinus rhythm overnight
Resume on outpatient metoprolol succinate and flecainide
Echo showed large left pleural effusion. Chest x-ray was unremarkable
TSH normal.
Follow-up outpatient with cardiology
Discharge today
EKG 02/20 on admission- ATRIAL FLUTTER WITH VARIABLE A-V BLOCK
Type 2 diabetes mellitus
A1c 7.5
Discussed with patient about options #1 metformin No. 2 glimepiride
Patient was not happy with the medication list as she has side effects with metformin
In the past she was diagnosed with diabetes and tried to control it with diet
Further discussion with outpatient PCP
Hypercholesterolemia
Increased TG, increased cholesterol
ASCVD risk less than 7.5%
Patient is a candidate for statin therapy for uncontrolled diabetes
Further discussion with outpatient PCP
DVT prophylaxis-continue Eliquis
Anticipated Discharge: Today
Subjective/Interval History
-
Date of Service: February 23, 2024
Patient denies chest pain, shortness of breath, palpitations
Objective Data
-
Labs:
Laboratory Results
02/23/24
04:44
WBC 8.9
Hgb 13.6
Hct 41.5
Plt Count 276
Sodium 135
Potassium 3.8
Chloride 104
Carbon Dioxide 24
BUN 16
Creatinine 0.5 L
Glucose 142 H
Calcium 9.4
Vital Signs:
Vital Signs
Temp Pulse Resp BP Pulse Ox
97.6 F 62 16 105/59 98
02/23/24 07:20 02/23/24 08:00 02/23/24 07:20 02/23/24 07:22 02/23/24 08:00
I&O
02/22/24 02/23/24 02/24/24
06:59 06:59 06:59
Intake Total 1500 / 1500
Balance 1500 / 1500
Review of Systems
-
History Source: Patient
All other systems: Reviewed and negative
Physical Exam
-
General: Comfortable and Conversant
HEENT: Normocephalic and Atraumatic
Respiratory: Clear to Auscultation
Cardiac: Regular Rhythm and S1/S2
GI: Soft, Nontender, Nondistended and Normal Bowel Sounds
Musculoskeletal: No Edema
Neuro: AO x 3
Psych: Calm
Data Reviewed
-
Labs: Labs Reviewed by me and Discussed with Physician
--- NOTE | 2024-02-23 09:12 | W.DCSUMMARY ---
Addendum entered and electronically signed by Aimee Rodriguez MD 02/23/24 17:19:
Fully ready and agree with d/c summary as outlined by Dr. Ruano.
Original Note:
Discharge Summary
Discharge Data
Date of Admission: 02/21/24
Date of Discharge: 02/23/24
-
Pending Results: No
Hospital Course
53-year-old female presented to the ED with atrial flutter with rapid ventricular response. Patient was able to drive from home to the hospital with her daughter. In the ED EKG showed atrial flutter with RVR. She was started on Cardizem drip. In
the ED patient was tachycardic, normotensive, low-grade fever. Patient has a history of atrial fibrillation with 2 ablations, SVT. Patient's heart rate . the Cardizem drip improved. We consulted cardiology and they recommended cardioversion if
the patient did not convert on her normal. Flecainide was continued along with Cardizem drip. On the day of admission, overnight patient was in atrial flutter until security administrator at 5 AM she converted on her own . Patient's heart rate was between
60-70. She did not have any further events . Patient's A1c was 7.5 , She was dx with DM which was controlled with diet . She was started on insulin sliding scale. Elevated cholestrol and TGs were also noted on labs. ASCVD risk <7.5 %. Patient
refused to start her on metformin on the day of discharge , patient is hemodynamically stable, vitals are stable with heart rate around 60s. Patient will resume outpatient medication-metoprolol and flecainide.
Atrial Flutter/afib with RVR
Resume metoprolol succinate 25 mg twice daily
Resume flecainide 100 mg twice daily
Follow-up with outpatient cardiology
Type 2 diabetes mellitus
A1c 7.5, gave options 1. metformin 2 glimiperide to take it at home
She refused both. Advise to follow with outpatient PCP
Hypercholesterolemia
Further discussion with PCP
Discharge Plan
-
Patient Disposition: Home (Routine Discharge)
Discharge Diagnosis/Procedures: Atrial Flutter/afib
Hyperglycemia
Hypercholesterolemia
Condition: Good
Diet: Diabetic, Carb Controlled
Activity: No restrictions
Driving Restrictions: As prior to admission
Bathing Restrictions: None
Referrals:
Shaheed Ruano MD, Resident [Active] - in one week (Follow-up for type 2 diabetes mellitus and hypercholesterolemia)
Riana Parsons CRNP [Family Provider] -
Keanu Mosley MD [Active] - 04/11/24 11:20 am (You have an appt to see Dr. Mosley at the [place] office on 04/11/24 at 11:20 AM. Please call [phone] if you need to reschedule.)
Additional Discharge Medication Instructions: Resume metoprolol succinate 25 mg 1 tablet twice daily
Resume flecainide 100 mg 1 tablet twice daily
Resume Eliquis 5 mg tablet
Follow-up with outpatient cardiology
Follow-up with outpatient PCP
Prescriptions:
Continued
flecainide 100 mg Tablet
100 mg PO BID
magnesium oxide 500 mg magnesium Tablet
500 mg PO HS
metoprolol succinate 25 mg Tablet Extended Release 24 Hr
25 mg PO BID
carboxymethylcellulose sodium 1 % Drops, Liquid Gel
1 - 3 drp BOTH EYES QIDPRN PRN (Reason: dry eyes)
cholecalciferol (vitamin D3) 25 mcg (1,000 unit) Tablet
25 mcg PO DAILY
Eliquis 5 mg Tablet
5 mg PO Q12H
Discharge Orders:
Discharge Patient (As Directed); Ordered 02/23/24
Ordered By: Shaheed Ruano
Care Plan Goals
Care Plan Goals:
Problem: Readiness for enhanced knowledge related to diagnosis and treatment plan
Goal: Understand your diagnosis and treatment plan needs, including medications if applicable.
Instructions: Know your diagnosis, underlying causes and treatment plan options, including medications if applicable. Consult with your health care team to learn about your diagnosis and treatment plan, including medications if applicable.
Discharge Date and Time
Discharge Date/Time: 02/23/24 14:24
Print Language: KENYAN
--- NOTE | 2024-02-23 10:52 | CM ---
Chart reviewed. Patient is independent of ADLS, lives with her daughter in a 3 STH, 3STE, 0 DME. Plan is for the patient to return home with no needs. CM to follow
[2024-02-23 11:32] VITALS: BP 112/72
[2024-02-23 12:57] LABS: Glucose - Point of Care 206 mg/dl (70-99)
[2024-02-23] MEDS: NOVOLOG FLEXPEN-LOW RESISTANCE 2 UNITS SC (13:17)
--- NOTE | 2024-02-23 14:15 | PTCARENOTE ---
Pt remains in SR, rate in the 60's to 70's. Pt denies any chest pain or sob. Pt OOB ad melissa in the room and the hallway. Pt discharged to home. Pt drove herself. Discharge instructions given and reviewed with good understanding and all questions
answered.
== END 2024-02-23 14:24 | disposition home or self-care (01) | DRG 309 ==
LOC: IVU 15:18
PROVIDERS: Student in an Organized Health Care Education/Training Program; ADMITTING PHYSICIAN Internal Medicine; CONSULT PHYSICIAN Internal Medicine Cardiovascular Disease; EMERGENCY PHYSICIAN Emergency Medicine; FAMILY PHYSICIAN Nurse Practitioner Family
DX: I48.3 Typical atrial flutter (principal); J90 Pleural effusion, not elsewhere classified; I48.0 Paroxysmal atrial fibrillation; Z79.01 Long term (current) use of anticoagulants; E11.65 Type 2 diabetes mellitus with hyperglycemia; E78.5 Hyperlipidemia, unspecified; E78.00 Pure hypercholesterolemia, unspecified
CPT/HCPCS: 71046; 80048; 80053; 80061; 81003; 82962; 83036; 83735; 84443; 85025; 85027; 93005; 93306; 96361; 96365; 96366; 96376; 99285

== ENCOUNTER 2024-03-11 22:22 | Emergency (ER) | payer MEDICARE, OTHER, SELFPAY ==
[2024-03-11 22:23] VITALS: BMI 36.8
[2024-03-11 22:24] VITALS: BP 178/90
[2024-03-11 22:53] LABS: % Basophils 0.7 % (0-2); % Eosinophils 2.3 % (0-6); % Immature Granulocytes 0.4 % (0-0.5); % Lymphocytes 30.5 % (20.5-51.1); % Neutrophils 59.1 % (42.2-75.2); Absolute Basophils 0.1 10^3/uL (0-0.2); Absolute Eosinophils 0.3 10^3/uL (0-0.7); Absolute Immature Granulocytes 0.1 10^3/uL (0-0.05); Absolute Lymphocytes 3.7 10^3/uL (1.2-3.4); Absolute Monocytes 0.9 10^3/uL (0.1-0.6); Absolute Neutrophils 7.3 10^3/uL (1.4-6.5); Hematocrit 49.6 % (37.0-47.0); Hemoglobin 16.2 g/dL (12.0-16.0); Mean Corp Hgb Conc. 32.7 g/dL (33.0-37.0); Mean Corpuscular Hgb 28.7 pg (27.0-31.0); Mean Corpuscular Volume 87.9 fL (81.0-99.0); Mean Platelet Volume 9.4 fL (7.4-10.4); Nucleated Red Blood Cells % 0 %; Platelet Count 351 10^3/uL (130-400); Red Blood Cell Count 5.64 10^6/uL (4.20-5.40); Red Cell Dist. Width 12.9 % (11.5-14.5); White Blood Cell Count 12.3 10^3/uL (4.8-10.8)
[2024-03-11 23:09] LABS: ALT (SGPT) 18 U/L (0-35); AST (SGOT) 30 U/L (14-36); Albumin 4.7 g/dl (3.5-5.0); Alkaline Phosphatase 159 U/L (38-126); Blood Urea Nitrogen 18 mg/dl (7-17); Calcium 10.2 mg/dl (8.4-10.2); Carbon Dioxide 27 mmol/L (22-30); Chloride 105 mmol/L (98-107); Glucose 172 mg/dl (70-99); Potassium 4.1 mmol/L (3.5-5.1); Sodium 141 mmol/L (135-145); Total Bilirubin 0.5 mg/dl (0.2-1.3); Total Protein 7.9 g/dl (6.3-8.2); eGFR > 60.00
--- NOTE | 2024-03-11 23:11 | ED.GENMED ---
History of Present Illness
<JESSICA Taylor - Last Filed: 03/12/24 01:32>
General
Chief Complaint: Heart Rate Problem
Source: patient
Exam Limitations: none
Time Seen by Provider: 03/11/24 22:35
Travel History
Have you had any contact with someone who has COVID-19?: No
Do you have any symptoms of coronavirus? Fever > 100 degrees, chills, cough, shortness of breath, sore throat, loss of taste or smell, muscle aches, or headache?: No
History of Present Illness
History of Present Illness:
This is a 53 YO F with a PMH of two ablations (2001 and 2016 -failed per pt), diabetes, uterine cancer, AFIB, and a prosthetic right eye presenting here today with palpitations x 2 hours. Pt reports the palpitations began immediately after taking
her medications: Eliquis, Metoprolol, and and Flecainide at 9 PM. Pt states she checked her EKG lula which showed she was in AFIB. After the palpitations, she started to have pain in her LUSB, with radiation into her neck. She also complains of
slight SOB, but admits it is worse when talking. Pt mentions her recently . Denies N,V, and diarrhea.
Pt cardioverted.
Past History
<JESSICA Taylor - Last Filed: 03/12/24 01:32>
Past History
ED Past Medical History: Arrthythmia (Atrial fib) and Other (History of kidney stones, IBS)
ED Past Surgical History: Gynecological (Hysterectomy)
Social History
Tobacco: Former smoker
Alcohol: None
Drug: None
Personal:
Living: with family
Employment: Employed
Family History
Family History: Other (Noncontributory)
Review of Systems
<JESSICA Taylor - Last Filed: 03/12/24 01:32>
Review of Systems
Constitutional: Reports no symptoms
EENT: Reports no symptoms
Respiratory: Reports no symptoms
Cardiac: Reports chest pain and palpitations
ABD/GI: Reports no symptoms
: Reports no symptoms
Musculoskeletal: Reports no symptoms
Skin: Reports no symptoms
Neurological: Reports no symptoms
Endocrine: Reports no symptoms
Phy Exam
<Agustina Mcknight [facility] - Last Filed: 03/12/24 01:32>
Physical Exam
Physical Exam:
Irregular S1 and S2, breath sounds are equal bilaterally
General Physical Exam
General Presentation: mild distress
General age: appears stated age
General Habitus: normal
General Mental: alert
Cardiovascular Exam
Cardiovascular Exam: irregularly irregular
Pulmonary Exam
Pulmonary Exam: lungs clear
Neurological Exam
Neurological Exam: alert and oriented x3
Course
<Agustina Mcknight [facility] - Last Filed: 03/12/24 01:32>
Orders/Labs/Results
Orders:
Orders
03/11/24 22:27
Electrocardiogram (*1) Urgent
Reason for Study: Atrial Fibrillation
EKG- Treatment ONCE
03/11/24 22:37
CMP [Comprehensive Metabolic Panel] Urgent
Complete Blood Count/With Diff Urgent
Troponin I Urgent
03/11/24 23:21
Diltiazem HCl [Cardizem] 20 mg IV NOW STA
03/11/24 23:30
Diltiazem 125 mg/125 ml Nss [Cardizem] 125 mg in 125 ml IV PER PROTOCOL
Initial dose in mg/hr, then titrate:: 5
Titrate to keep:: Heart rate 80-100 bpm
Titrate by mg/hr:: 5 mg/hr
Frequency of titrations (minutes):: 15
Maximum dose in mg/hr:: 15
03/11/24 23:43
CR Chest - 2 Views Urgent
Comment:
Reason For Exam: palpitations
03/12/24 01:05
Electrocardiogram (*1) Urgent
Reason for Study: Atrial Fibrillation
EKG- Treatment ONCE
Abnormal Lab Results
03/11/24
22:37
WBC 12.3 H 10^3/uL
(4.8-10.8)
RBC 5.64 H 10^6/uL
(4.20-5.40)
Hgb 16.2 H g/dL
(12.0-16.0)
Hct 49.6 H %
(37.0-47.0)
MCHC 32.7 L g/dL
(33.0-37.0)
Abs Immat Gran (auto) 0.1 H 10^3/uL
(0-0.05)
Absolute Neuts (auto) 7.3 H 10^3/uL
(1.4-6.5)
Absolute Lymphs (auto) 3.7 H 10^3/uL
(1.2-3.4)
Absolute Monos (auto) 0.9 H 10^3/uL
(0.1-0.6)
BUN 18 H mg/dl
(7-17)
Glucose 172 H mg/dl
(70-99)
Alkaline Phosphatase 159 H U/L
(38-126)
03/11/24 22:37
03/11/24 22:37
Vital Signs
Initial and Last Documented VS:
Initial Vital Signs
Temp Pulse Resp BP Pulse Ox
97.4 F 120 24 178/90 94
03/11/24 22:24 03/11/24 22:24 03/11/24 22:24 03/11/24 22:24 03/11/24 22:24
Last Documented Vital Signs
Temp Pulse Resp BP Pulse Ox
97.4 F 66 22 102/51 93
03/11/24 22:24 03/12/24 01:15 03/12/24 01:15 03/12/24 01:00 03/12/24 01:15
<Candelario Richardson, DO - Last Filed: 03/12/24 01:35>
Orders/Labs/Results
Orders:
Orders
03/11/24 22:27
Electrocardiogram (*1) Urgent
Reason for Study: Atrial Fibrillation
EKG- Treatment ONCE
03/11/24 22:37
CMP [Comprehensive Metabolic Panel] Urgent
Complete Blood Count/With Diff Urgent
Troponin I Urgent
03/11/24 23:21
Diltiazem HCl [Cardizem] 20 mg IV NOW STA
03/11/24 23:30
Diltiazem 125 mg/125 ml Nss [Cardizem] 125 mg in 125 ml IV PER PROTOCOL
Initial dose in mg/hr, then titrate:: 5
Titrate to keep:: Heart rate 80-100 bpm
Titrate by mg/hr:: 5 mg/hr
Frequency of titrations (minutes):: 15
Maximum dose in mg/hr:: 15
03/11/24 23:43
CR Chest - 2 Views Urgent
Comment:
Reason For Exam: palpitations
03/12/24 01:05
Electrocardiogram (*1) Urgent
Reason for Study: Atrial Fibrillation
EKG- Treatment ONCE
Abnormal Lab Results
03/11/24
22:37
WBC 12.3 H 10^3/uL
(4.8-10.8)
RBC 5.64 H 10^6/uL
(4.20-5.40)
Hgb 16.2 H g/dL
(12.0-16.0)
Hct 49.6 H %
(37.0-47.0)
MCHC 32.7 L g/dL
(33.0-37.0)
Abs Immat Gran (auto) 0.1 H 10^3/uL
(0-0.05)
Absolute Neuts (auto) 7.3 H 10^3/uL
(1.4-6.5)
Absolute Lymphs (auto) 3.7 H 10^3/uL
(1.2-3.4)
Absolute Monos (auto) 0.9 H 10^3/uL
(0.1-0.6)
BUN 18 H mg/dl
(7-17)
Glucose 172 H mg/dl
(70-99)
Alkaline Phosphatase 159 H U/L
(38-126)
03/11/24 22:37
03/11/24 22:37
Vital Signs
Initial and Last Documented VS:
Initial Vital Signs
Temp Pulse Resp BP Pulse Ox
97.4 F 120 24 178/90 94
03/11/24 22:24 03/11/24 22:24 03/11/24 22:24 03/11/24 22:24 03/11/24 22:24
Last Documented Vital Signs
Temp Pulse Resp BP Pulse Ox
97.4 F 66 22 102/51 93
03/11/24 22:24 03/12/24 01:15 03/12/24 01:15 03/12/24 01:00 03/12/24 01:15
<JESSICA Taylor - Last Filed: 03/12/24 01:32>
MDM/Problems Addressed
Differential Diagnosis Includes:
Atrial Fibrillation, STEMI vs. NSTEMI, Vasospastic angina, Unstable vs. stable angina
MDM/Problems Addressed:
Palpitations x 2 hours
Chronic conditions affecting care: DM and Cancer
<JESSICA Taylor - Last Filed: 03/12/24 01:32>
*Critical Care Note
Total Time (30-74mins, 75-104mins- exclusive of procedures): Not Applicable
<JESSICA Taylor - Last Filed: 03/12/24 01:32>
Update Note
Update Note:
Cardioverted
ED Attending Note
<JESSICA Taylor - Last Filed: 03/12/24 01:32>
-
Portions of this chart may have been created with voice recognition software.� Occasional wrong word or��sound alike� substitutions may have occurred due to the inherent limitations of voice recognition software.
<Candelario Richardson DO - Last Filed: 03/12/24 01:35>
ED Attending Note
Patient seen and examined by attending physician: Yes
I performed the substantive portion of visit, reviewed & personally made and approve the management plan that is documented in note by myself or LULA.: Yes
ED Attending Note:
Pleasant 53-year-old female presents with atrial flutter. She states that she went into flutter around 9 PM. She did take her flecainide and metoprolol an hour early. She is on Eliquis which she has been taking regularly. She states that she has
had 2 ablations in her last last one being 2017. She states that it was a failed ablation. She follows with a salad chef at an outside hospital but wishes to transfer care to this hospital. She denies any other complaints. Patient states that
her recently and she has been under some stress. Patient was seen in conjunction with the PA student. I have reviewed and agree with the history and treatment plan presented. On my independent physical exam, patient is awake,
alert, and oriented x3
Vital signs are stable. Patient not hypoxic
Nursing note reviewed. I agree with nursing documentation up to this point in time.
Home Meds and allergies reviewed.
NUMBER AND COMPLEXITY OF PROBLEMS ADDRESSED AT THE ENCOUNTER
� Chronic conditions affecting care: Paroxysmal atrial flutter
� Acute Exacerbation and/or Progression of Chronic Illness: Atrial flutter
� Differential Diagnosis includes: Atrial flutter
AMOUNT AND/OR COMPLEXITY OF DATA TO BE REVIEWED AND ANALYZED
I performed an independent evaluation of the following and my interpretation is:
EKG: EKG shows atrial flutter rate of 132, normal axis, prolonged QTc.
CT:
X-rays:
Ultrasound:
Laboratory Studies:
Other:
Review of other/old records:
Clinical information was obtained by an independent historian:
Prescriptions/Medications Considered but not given:
Further testing considered but not performed:
RISK OF COMPLICATIONS AND/OR MORBIDITY OR MORTALITY OF PATIENT MANAGEMENT
Social determinants of health affecting care: Good Social Support
Discussion with other providers:
Escalation of care including admission/observation vs risk of discharge considered:
CRITICAL CARE NOTE:
Total Time (exclusive of procedures):
Update:
Discharge Plan
Departure
Patient Disposition: Home (Routine Discharge)
Date of Disposition: 03/12/24
Time of Disposition: 01:34
Patient with high blood pressure during this ER visit?: No
Condition: Good
Covid-19: Not Applicable
Discharge Problem:
Atrial flutter with rapid ventricular response
Instructions: Atrial Fibrillation (DC), Palpitations (DC)
Prescriptions:
No Action
flecainide 100 mg Tablet
100 mg PO BID
magnesium oxide 500 mg magnesium Tablet
500 mg PO HS
metoprolol succinate 25 mg Tablet Extended Release 24 Hr
25 mg PO BID
carboxymethylcellulose sodium 1 % Drops, Liquid Gel
1 - 3 drp BOTH EYES QIDPRN PRN (Reason: dry eyes)
cholecalciferol (vitamin D3) 25 mcg (1,000 unit) Tablet
25 mcg PO DAILY
Eliquis 5 mg Tablet
5 mg PO Q12H
Referrals:
[facility] [Provider Group]
Riana Parsons CRNP [Family Provider] -
Activity Restrictions/Additional Instructions:
It was a pleasure meeting you and taking part in your care. We hope for your continued healing and wellness.
Please read discharge instructions in their entirety. However, they are for general education and may not describe your exact diagnosis at discharge. Information on your ER visit and medical conditions were discussed with you along with appropriate
follow up information...
If indicated, please take your medications as instructed and indicated on discharge paperwork.
Please schedule a follow up appointment as directed. Call to schedule an appointment
Please return to the emergency department with ANY change in, persisting, or worsening of symptoms. If any of your symptoms do not improve, or persist, or become more severe within 6-12 hours, please return to the emergency department for further
care.
Please return to the emergency department if you develop a headache, neck pain/stiffness, fever greater than 100.4F, chest pain, shortness of breath, persistent nausea, vomiting, slurred speech, difficulty walking, numbness/tingling, weakness, signs
of infection or any other symptoms that are worrisome to you.
If you have any questions or concerns please do not hesitate to call the Hospital at or E-mail me directly at [email or web address]
Interventions
Interventions:
*Risk Screen - Suicide Last Done: 03/11/24 22:24
*Neglect/Abuse Screening Last Done: 03/11/24 22:24
ED- Cardiac Assessment Last Done: 03/11/24 22:57
ED- Pulmonary Assessment Last Done: 03/11/24 22:57
Discharge Date and Time
Print Language: ICELANDIC
[2024-03-11 23:21] LABS: Troponin I < 0.012 ng/ml
[2024-03-11 23:25] VITALS: BP 141/96
[2024-03-11] MEDS: CARDIZEM 20 MG IV (23:26)
[2024-03-11] MEDS: CARDIZEM 125 IV (23:32)
[2024-03-12 00:10] VITALS: BP 118/68
[2024-03-12 00:30] VITALS: BP 104/66
[2024-03-12 01:00] VITALS: BP 102/51
[2024-03-12 01:30] VITALS: BP 103/58
[2024-03-12 02:00] VITALS: BP 101/54
== END 2024-03-12 03:12 | disposition home or self-care (01) ==
LOC: EMR 22:22
PROVIDERS: EMERGENCY PHYSICIAN Student in an Organized Health Care Education/Training Program; FAMILY PHYSICIAN Nurse Practitioner Family
DX: I48.92 Unspecified atrial flutter (principal); E11.9 Type 2 diabetes mellitus without complications; K58.9 Irritable bowel syndrome, unspecified; Z79.01 Long term (current) use of anticoagulants; Z85.42 Personal history of malignant neoplasm of other parts of uterus; Z87.442 Personal history of urinary calculi; Z87.891 Personal history of nicotine dependence; Z90.710 Acquired absence of both cervix and uterus; Z97.0 Presence of artificial eye
CPT/HCPCS: 99283; 96374; 96376; 71046; 80053; 84484; 85025; 93005

== ENCOUNTER 2024-05-04 11:23 | Emergency (ER) | payer MEDICARE, OTHER, SELFPAY ==
[2024-05-04 11:30] VITALS: BP 126/78
[2024-05-04 12:26] VITALS: BP 118/65
[2024-05-04 12:35] VITALS: BMI 32.6
--- NOTE | 2024-05-04 12:46 | ED.GENMED ---
History of Present Illness
General
Chief Complaint: Heart Rate Problem
Source: patient
Time Seen by Provider: 05/04/24 12:17
History of Present Illness
History of Present Illness:
53yoF with a history of paroxysmal atrial fibrillation presenting for evaluation of palpitations. She reports having frequent PVCs over the past several days which is typically her precursor to her afib episodes. She had about a 1 minute episode of
afib yesterday which she noted on her home monitor. 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 She spoke with her friend and she is concerned that she may have a DVT. She denies any chest
pain, shortness of breath, dizziness, syncope. Current medications are flecainide, metoprolol, and Eliquis.
Past History
Past History
ED Past Medical History: Arrthythmia (Atrial fib) and Other (History of kidney stones, IBS)
ED Past Surgical History: Gynecological (Hysterectomy)
Social History
Tobacco: Former smoker
Alcohol: None
Drug: None
Personal:
Living: with family
Employment: Employed
Family History
Family History: Other (Noncontributory)
Phy Exam
General Physical Exam
General Presentation: well appearing and no apparent distress
General age: appears stated age
General Skin: warm and dry
General Habitus: normal
General Mental: alert
General Hydration: appears well hydrated
Cardiovascular Exam
Cardiovascular Exam: regular rate/rhythm and no murmur
Pulmonary Exam
Pulmonary Exam: lungs clear, no respiratory distress, no rales and no crackles
Musculoskeletal Exam
Musculoskeletal Exam: other (Mild tenderness to L popliteal fossa without skin changes or pitting edema. )
Skin Exam
Skin Exam: normal color and warm/dry
Course
Orders/Labs/Results
Orders:
Orders
05/04/24 11:38
EKG [Electrocardiogram (*1)] Urgent
Reason for Study: Palpitations
05/04/24 11:39
EKG- Treatment ONCE
05/04/24 12:46
Cardiac Monitoring- Treatment ONCE
Venous Doppler Lwr Ext Left [US Periph Venous LOWER Ext LT] Urgent
Comment:
Reason For Exam: L popliteal pain
05/04/24 12:49
Complete Blood Count/With Diff Urgent
Comprehensive Metabolic Panel Urgent
Magnesium Urgent
Troponin I Urgent
Abnormal Lab Results
05/04/24
12:49
Glucose 127 H mg/dl
(70-99)
05/04/24 12:49
05/04/24 12:49
Vital Signs
Initial and Last Documented VS:
Initial Vital Signs
Temp Pulse Resp BP Pulse Ox
98.3 F 76 16 126/78 95
05/04/24 11:30 05/04/24 11:30 05/04/24 11:30 05/04/24 11:30 05/04/24 11:30
Last Documented Vital Signs
Temp Pulse Resp BP Pulse Ox
98.3 F 60 18 116/65 98
05/04/24 11:30 05/04/24 14:45 05/04/24 14:00 05/04/24 13:00 05/04/24 14:45
MDM/Problems Addressed
Differential Diagnosis Includes:
53yoF presenting with frequent PVCs over the past few days and palpitations. Hx of afib and is worried because PVCs are the typical precursor to her afib episodes. No CP/SOB. No syncope. Also c/o L popliteal pain. Recently diagnosed with a Calloway's
cyst but she is worried about a DVT. Patient is afebrile and hemodynamically stable. She is well-appearing in no acute distress. Normal sinus rhythm noted on the monitor. Differential diagnosis includes but is not limited to: PVCs, electrolyte
abnormality, arrhythmia, ACS
Initial ED plan: Check cardiac labs, EKG, and place on potline monitor. Will check venous duplex to rule out DVT.
*EKG
Interpreted by ED Provider?: Yes
EKG Intrepretation Date: 05/04/24
Heart Rate: 63
Rate: normal
Rhythm: sinus
Corona: normal axis
Interval: normal interval
QRS Pattern: normal QRS
Ischemia: other (Nonspecific T wave changes. EKG unchanged from prior from February 2024)
*Critical Care Note
Total Time (30-74mins, 75-104mins- exclusive of procedures): Not Applicable
Update Note
Update Note:
Labs unremarkable including normal blood counts and electrolytes. Troponin less than 0.012. Venous duplex is negative for DVT. Patient remains in normal sinus rhythm on reassessment and no telemetry events occurred during ED stay. No indication
for admission. She was advised to follow-up closely with her crepe laminator operator. ED return precautions discussed. She was discharged in stable condition.
ED Attending Note
-
Portions of this chart may have been created with voice recognition software.� Occasional wrong word or��sound alike� substitutions may have occurred due to the inherent limitations of voice recognition software.
Discharge Plan
Departure
Patient Disposition: Home (Routine Discharge)
Date of Disposition: 05/04/24
Time of Disposition: 14:54
Patient with high blood pressure during this ER visit?: No
Discharge Problem:
Heart palpitations
Instructions: Heart Palpitations
Prescriptions:
No Action
flecainide 100 mg Tablet
100 mg PO BID
magnesium oxide 500 mg magnesium Tablet
500 mg PO HS
metoprolol succinate 25 mg Tablet Extended Release 24 Hr
25 mg PO BID
carboxymethylcellulose sodium 1 % Drops, Liquid Gel
1 - 3 drp BOTH EYES QIDPRN PRN (Reason: dry eyes)
cholecalciferol (vitamin D3) 25 mcg (1,000 unit) Tablet
25 mcg PO DAILY
Eliquis 5 mg Tablet
5 mg PO Q12H
Referrals:
Riana Parsons CRNP [Family Provider] -
Activity Restrictions/Additional Instructions:
Please follow-up closely with your crepe laminator operator. Return to the ER with any new or worsening symptoms.
Interventions
Interventions:
*Risk Screen - Suicide Last Done: 05/04/24 11:30
*General Assessment Last Done: 05/04/24 11:30
*Neglect/Abuse Screening Last Done: 05/04/24 11:30
ED- Fall Risk Assessment Last Done: 05/04/24 12:35
*ED COVID-19 Vaccine History Last Done: 05/04/24 11:38
*Nursing Disposition Last Done: 05/04/24 15:07
ED- Cardiac Assessment Last Done: 05/04/24 12:35
ED- Pulmonary Assessment Last Done: 05/04/24 12:35
Discharge Date and Time
Discharge Date/Time: 05/04/24 15:08
Print Language: YI
[2024-05-04 12:58] LABS: % Basophils 0.5 % (0-2); % Eosinophils 2.8 % (0-6); % Immature Granulocytes 0.3 % (0-0.5); % Lymphocytes 27.4 % (20.5-51.1); % Monocytes 5.7 % (1.7-9.3); % Neutrophils 63.3 % (42.2-75.2); Absolute Basophils 0.1 10^3/uL (0-0.2); Absolute Eosinophils 0.3 10^3/uL (0-0.7); Absolute Lymphocytes 2.6 10^3/uL (1.2-3.4); Absolute Monocytes 0.5 10^3/uL (0.1-0.6); Hematocrit 46.3 % (37.0-47.0); Hemoglobin 15.5 g/dL (12.0-16.0); Mean Corp Hgb Conc. 33.5 g/dL (33.0-37.0); Mean Corpuscular Volume 86.5 fL (81.0-99.0); Mean Platelet Volume 9.2 fL (7.4-10.4); Nucleated Red Blood Cells % 0 %; Platelet Count 303 10^3/uL (130-400); Red Blood Cell Count 5.35 10^6/uL (4.20-5.40); White Blood Cell Count 9.5 10^3/uL (4.8-10.8)
[2024-05-04 13:00] VITALS: BP 116/65
[2024-05-04 13:18] LABS: ALT (SGPT) 15 U/L (0-35); AST (SGOT) 22 U/L (14-36); Albumin 4.3 g/dl (3.5-5.0); Alkaline Phosphatase 115 U/L (38-126); Blood Urea Nitrogen 13 mg/dl (7-17); Calcium 9.4 mg/dl (8.4-10.2); Carbon Dioxide 26 mmol/L (22-30); Chloride 104 mmol/L (98-107); Estimated Creatinine Clearance 117 ml/min; Glucose 127 mg/dl (70-99); Magnesium 1.9 mg/dl (1.6-2.3); Potassium 4.1 mmol/L (3.5-5.1); Sodium 138 mmol/L (135-145); Total Bilirubin 0.7 mg/dl (0.2-1.3); eGFR > 60.00
[2024-05-04 13:20] LABS: Troponin I < 0.012 ng/ml
== END 2024-05-04 15:08 | disposition home or self-care (01) ==
LOC: EMR 11:23
PROVIDERS: Physician Assistant; EMERGENCY PHYSICIAN Emergency Medicine; FAMILY PHYSICIAN Nurse Practitioner Family
DX: R00.2 Palpitations (principal); R22.42 Localized swelling, mass and lump, left lower limb; I48.0 Paroxysmal atrial fibrillation; M71.22 Synovial cyst of popliteal space [Baker], left knee
CPT/HCPCS: 99285; 80053; 83735; 84484; 85025; 93005; 93971

== ENCOUNTER → 2024-06-05 18:22 | Outpatient (REF) | payer MEDICARE, OTHER, SELFPAY | LOC: PAVMRI 18:22 | PROVIDERS: ATTENDING PHYSICIAN Physician Assistant Surgical | DX: S83.242A Other tear of medial meniscus, current injury, left knee, initial encounter (principal); M23.92 Unspecified internal derangement of left knee | CPT/HCPCS: 73721 ==

== ENCOUNTER 2024-07-03 19:02 | Emergency (ER) | payer MEDICARE, OTHER, SELFPAY ==
[2024-07-03 19:16] VITALS: BP 144/78
[2024-07-03 19:50] LABS: % Basophils 0.7 % (0-2); % Eosinophils 2.1 % (0-6); % Immature Granulocytes 0.4 % (0-0.5); % Lymphocytes 28.7 % (20.5-51.1); % Neutrophils 62.1 % (42.2-75.2); Absolute Basophils 0.1 10^3/uL (0-0.2); Absolute Eosinophils 0.2 10^3/uL (0-0.7); Absolute Immature Granulocytes 0.1 10^3/uL (0-0.05); Absolute Lymphocytes 3.3 10^3/uL (1.2-3.4); Absolute Monocytes 0.7 10^3/uL (0.1-0.6); Absolute Neutrophils 7.2 10^3/uL (1.4-6.5); Hematocrit 44.9 % (37.0-47.0); Mean Corp Hgb Conc. 33.4 g/dL (33.0-37.0); Mean Corpuscular Hgb 29.1 pg (27.0-31.0); Mean Platelet Volume 9.1 fL (7.4-10.4); Nucleated Red Blood Cells % 0 %; Platelet Count 300 10^3/uL (130-400); Red Blood Cell Count 5.16 10^6/uL (4.20-5.40); White Blood Cell Count 11.6 10^3/uL (4.8-10.8)
[2024-07-03 20:00] LABS: INR 1.07
[2024-07-03 20:22] LABS: Troponin I < 0.012 ng/ml
[2024-07-03 20:25] LABS: ALT (SGPT) 18 U/L (0-35); AST (SGOT) 24 U/L (14-36); Albumin 4.4 g/dl (3.5-5.0); Alkaline Phosphatase 141 U/L (38-126); Blood Urea Nitrogen 17 mg/dl (7-17); Calcium 9.3 mg/dl (8.4-10.2); Carbon Dioxide 22 mmol/L (22-30); Chloride 102 mmol/L (98-107); Glucose 156 mg/dl (70-99); Magnesium 1.9 mg/dl (1.6-2.3); Potassium 4.1 mmol/L (3.5-5.1); Sodium 142 mmol/L (135-145); Total Bilirubin 0.3 mg/dl (0.2-1.3); eGFR > 60.00
[2024-07-03 20:35] LABS: TSH Reflex To Free T4 1.81 uIU/ml (0.47-4.68)
[2024-07-03 20:43] VITALS: BP 113/57
[2024-07-03 21:00] VITALS: BP 111/64
--- NOTE | 2024-07-03 21:33 | ED.GENMED ---
History of Present Illness
General
Chief Complaint: Heart Rate Problem
Time Seen by Provider: 07/03/24 21:06
History of Present Illness
History of Present Illness:
Patient is a 53-year-old woman with history of A-fib status post ablation currently on metoprolol flecainide and Eliquis presenting to the emergency department palpitations. Patient states that all day today she been feeling palpitations. She did
occasionally feel dizzy. She not have any syncopal events. No chest pain. No shortness of breath. She has been compliant with all her medications. She does state for the past few days has been having a URI symptoms as well as a productive
cough. She does feel little dehydrated. No nausea vomiting. No diarrhea. This happened to her many times and she thought it was her A-fib or could be premature contractions.
Past History
Past History
ED Past Medical History: Arrthythmia (Atrial fib) and Other (History of kidney stones, IBS)
ED Past Surgical History: Gynecological (Hysterectomy)
Social History
Tobacco: Former smoker
Alcohol: None
Drug: None
Personal:
Living: with family
Employment: Employed
Family History
Family History: Other (Noncontributory)
Phy Exam
Physical Exam
Physical Exam:
GENERAL: in no acute distress
HEENT: normocephalic, extraocular movements intact, moist oral mucosa
NECK: normal inspection
RESPIRATORY: no respiratory distress, clear to auscultation bilaterally
CARDIOVASCULAR: regular rate and rhythm
ABDOMEN/: soft, non-distended, non-tender to palpation, no rebound or guarding
EXTREMITIES: non-tender, no edema/swelling
NEUROLOGIC: awake and alert, moves all extremities
SKIN: warm
Course
Orders/Labs/Results
Orders:
Orders
07/03/24 19:03
ECG [Electrocardiogram (*1)] Urgent
Reason for Study: Palpitations
EKG- Treatment ONCE
07/03/24 19:36
Complete Blood Count/With Diff Urgent
Comprehensive Metabolic Panel Urgent
Magnesium Urgent
Prothrombin Time Urgent
TSH Reflex To Free T4 Urgent
Troponin I Urgent
07/03/24 21:14
CR Chest - 2 Views Urgent
Comment:
Reason For Exam: cough
07/03/24 21:49
COVID-19 Antigen Stat
Source: Nasal Swab
Influenza A+B Rapid Molecular Urgent
ZOYA Source: Nasal Swab
Specimen Description:
Abnormal Lab Results
07/03/24
19:36
WBC 11.6 H 10^3/uL
(4.8-10.8)
Abs Immat Gran (auto) 0.1 H 10^3/uL
(0-0.05)
Absolute Neuts (auto) 7.2 H 10^3/uL
(1.4-6.5)
Absolute Monos (auto) 0.7 H 10^3/uL
(0.1-0.6)
Glucose 156 H mg/dl
(70-99)
Alkaline Phosphatase 141 H U/L
(38-126)
07/03/24 19:36
07/03/24 19:36
Vital Signs
Initial and Last Documented VS:
Initial Vital Signs
Temp Pulse Resp BP Pulse Ox
98.3 F 67 18 144/78 97
07/03/24 19:16 07/03/24 19:16 07/03/24 19:16 07/03/24 19:16 07/03/24 19:16
Last Documented Vital Signs
Temp Pulse Resp BP Pulse Ox
98.3 F 62 15 110/52 95
07/03/24 19:16 07/03/24 22:00 07/03/24 22:00 07/03/24 22:00 07/03/24 22:00
MDM/Problems Addressed
Differential Diagnosis Includes:
Patient is a 53-year-old woman with history of A-fib on metoprolol, flecainide Eliquis presenting to the emergency department with palpitations that have been going on all day. Vitals here are notable for heart rate in the 60s. She does have
premature ventricular contractions during my evaluation on the monitor. Exam does show clear breath sounds bilaterally and a regular. Differential consists of arrhythmia such as A-fib or premature contractions or electrolyte derangement. The
trigger could be this URI or pneumonia. Will obtain blood work and chest x-ray. Will swab for COVID and flu. EKG per my interpretation normal sinus rhythm with PVCs.
*Critical Care Note
Total Time (30-74mins, 75-104mins- exclusive of procedures): Not Applicable
Update Note
Update Note:
Blood work grossly unremarkable. Patient remained in normal sinus rhythm during our evaluation. Chest x-ray without any signs of pneumonia. Will discharge at this time.
ED Attending Note
-
Portions of this chart may have been created with voice recognition software.� Occasional wrong word or��sound alike� substitutions may have occurred due to the inherent limitations of voice recognition software.
Discharge Plan
Departure
Patient Disposition: Home (Routine Discharge)
Date of Disposition: 07/03/24
Time of Disposition: 23:05
Patient with high blood pressure during this ER visit?: No
Discharge Problem:
Palpitation
Instructions: Palpitations (DC)
Prescriptions:
No Action
flecainide 100 mg Tablet
100 mg PO BID
magnesium oxide 500 mg magnesium Tablet
500 mg PO HS
metoprolol succinate 25 mg Tablet Extended Release 24 Hr
25 mg PO BID
carboxymethylcellulose sodium 1 % Drops, Liquid Gel
1 - 3 drp BOTH EYES QIDPRN PRN (Reason: dry eyes)
cholecalciferol (vitamin D3) 25 mcg (1,000 unit) Tablet
25 mcg PO DAILY
Eliquis 5 mg Tablet
5 mg PO Q12H
Referrals:
Riana Parsons CRNP [Family Provider] -
Interventions
Interventions:
*Risk Screen - Suicide Last Done: 07/03/24 21:51
*General Assessment Last Done: 07/03/24 19:16
*Neglect/Abuse Screening Last Done: 07/03/24 21:51
ED- Cardiac Assessment Last Done: 07/03/24 21:51
ED- Pulmonary Assessment Last Done: 07/03/24 21:51
Discharge Date and Time
Print Language: GHANAIAN
[2024-07-03 21:51] VITALS: BMI 34.8
[2024-07-03 22:00] VITALS: BP 110/52
[2024-07-03 22:14] LABS: COVID-19 Antigen Negative (Negative)
[2024-07-03 23:00] VITALS: BP 107/51
== END 2024-07-03 23:20 | disposition home or self-care (01) ==
LOC: EMR 19:02
PROVIDERS: Emergency Medicine; EMERGENCY PHYSICIAN Student in an Organized Health Care Education/Training Program; FAMILY PHYSICIAN Nurse Practitioner Family
DX: R00.2 Palpitations (principal); I48.91 Unspecified atrial fibrillation; R42 Dizziness and giddiness; R05.9 Cough, unspecified; R09.89 Other specified symptoms and signs involving the circulatory and respiratory systems; Z11.52 Encounter for screening for COVID-19; I49.3 Ventricular premature depolarization; K58.9 Irritable bowel syndrome, unspecified; Z79.01 Long term (current) use of anticoagulants; Z79.899 Other long term (current) drug therapy; Z87.891 Personal history of nicotine dependence; Z87.442 Personal history of urinary calculi; Z88.1 Allergy status to other antibiotic agents; Z88.5 Allergy status to narcotic agent; Z88.8 Allergy status to other drugs, medicaments and biological substances
CPT/HCPCS: 99283; 71046; 80053; 83735; 84443; 84484; 85025; 85610; 87502; 87811; 93005

== ENCOUNTER 2024-08-25 14:09 | Emergency (ER) | payer MEDICARE, OTHER, SELFPAY ==
[2024-08-25] VITALS (7 sets, daily range): BP systolic 113–145; BP diastolic 68–89
--- NOTE | 2024-08-25 15:05 | ED.GENMED ---
History of Present Illness
<Lauren Armendariz PA-C - Last Filed: 08/26/24 14:48>
General
Chief Complaint: Chest Pain
Source: patient
Exam Limitations: none
Time Seen by Provider: 08/25/24 15:01
Nursing documentation reviewed up to this point in time: agreed with
History of Present Illness
History of Present Illness:
Patient is a 54-year-old female with history of paroxysmal atrial fibrillation on Eliquis, diabetes presenting to the emergency department with intermittent chest pain for the past week. Patient states that she has been under a significant amount
of stress as her mom did unfortunately last week. Patient received a cortisone injection in her left knee last Monday and states that later that day she started to have intermittent chest discomfort in her left chest with radiation
down her left arm. Pain has been intermittent since. Patient denies any obvious exertional component. No pleuritic component. Patient denies any associated shortness of breath, fever. No pain in her lower legs.
However�patient does report that she has been having some 'heartburn' over the past week as well. This does seem to be worse after eating.
Patient denies any personal history of CAD.
Past History
<Lauren Armendariz PA-C - Last Filed: 08/26/24 14:48>
Past History
ED Past Medical History: Arrthythmia (Atrial fib) and Other (History of kidney stones, IBS)
ED Past Surgical History: Gynecological (Hysterectomy)
Social History
Tobacco: Former smoker
Alcohol: None
Drug: None
Personal:
Living: with family
Employment: Employed
Family History
Family History: Other (Noncontributory)
Review of Systems
<Luaren Armendariz PA-C - Last Filed: 08/26/24 14:48>
Review of Systems
Allergies reviewed?: Yes
All Other Systems: ROS reviewed and negative except as documented in HPI and ROS
Phy Exam
<Lauren Armendariz PA-C - Last Filed: 08/26/24 14:48>
Physical Exam
Physical Exam:
Vitals: Patient's vital signs are stable
General: Patient is well appearing, no acute distress. Nontoxic appearing
Skin: Warm and dry, no rashes or lesions
Head: Normocephalic, atraumatic
Eyes: Sclera nonicteric. EOMs intact. No nystagmus.
Throat: Protecting airway
Neck: Normal ROM, no cervical spine tenderness, no meningismus. No JVD
Cardiac: Regular rate and rhythm, no murmurs. No anterior chest wall tenderness.
Pulm: Normal respiratory effort, no wheezes, rales, rhonchi heard on exam.
Abdomen: Abdomen soft. Mild epigastric tenderness. No rebound tenderness or guarding. Negative Knight sign.
Extremities: No evidence of cyanosis or edema. Palpable distal pulses
Neuro: AAOx3. Grossly intact.
Psychiatric: Normal affect.
Scores
<Lauren Armendariz PA-C - Last Filed: 08/26/24 14:48>
Heart Score for Chest Pain Patients
STEMI patient?: No
History: Slightly or Non-Suspicious
ECG: Nonspecific Repolarization
Age: >45 - <65 years
Risk Factors: 1 or 2 Risk Factors
Troponin: </= Normal Limit
Heart Score for Chest Pain Patients: 3
Heart Score Risk: 2.5% MACE over next 6 weeks
Course
<Lauren Armendariz PA-C - Last Filed: 08/26/24 14:48>
Orders/Labs/Results
Orders:
Orders
08/25/24 14:12
Electrocardiogram (*1) Urgent
Reason for Study: Chest Pain
EKG- Treatment ONCE
08/25/24 15:29
Comprehensive Metabolic Panel Urgent
Lipase Urgent
08/25/24 15:30
Complete Blood Count/With Diff Urgent
Troponin I Urgent
08/25/24 15:34
Pantoprazole [Protonix IV] 40 mg IV NOW STA
CR Chest - 2 Views Urgent
Comment:
Reason For Exam: left chest pain
08/25/24 16:50
CT Abd/pelvis W Iv Cont Urgent
Comment:
Reason For Exam: epigastric pain, elevated lipase
0.9% Sodium Chloride 1000 ml [Nss] 1,000 ml IV BOLUS
08/25/24 18:33
Troponin I Urgent
Abnormal Lab Results
08/25/24 08/25/24
15:29 15:30
WBC 13.2 H 10^3/uL
(4.8-10.8)
Abs Immat Gran (auto) 0.1 H 10^3/uL
(0-0.05)
Absolute Neuts (auto) 9.0 H 10^3/uL
(1.4-6.5)
Absolute Monos (auto) 1.2 H 10^3/uL
(0.1-0.6)
Immature Gran % 0.8 H %
(0-0.5)
Glucose 155 H mg/dl
(70-99)
Lipase 387 H U/L
(23-300)
08/25/24 15:30
08/25/24 15:29
Vital Signs
Initial and Last Documented VS:
Initial Vital Signs
Temp Pulse Resp BP Pulse Ox
98.2 F 63 16 145/89 99
08/25/24 14:12 08/25/24 14:12 08/25/24 14:12 08/25/24 14:12 08/25/24 14:12
Last Documented Vital Signs
Temp Pulse Resp BP Pulse Ox
98.2 F 64 21 114/68 96
08/25/24 14:12 08/25/24 16:36 08/25/24 16:36 08/25/24 19:00 08/25/24 19:45
<Iker Keyes MD - Last Filed: 08/25/24 17:19>
Orders/Labs/Results
Orders:
Orders
08/25/24 14:12
Electrocardiogram (*1) Urgent
Reason for Study: Chest Pain
EKG- Treatment ONCE
08/25/24 15:29
Comprehensive Metabolic Panel Urgent
Lipase Urgent
08/25/24 15:30
Complete Blood Count/With Diff Urgent
Troponin I Urgent
08/25/24 15:34
Pantoprazole [Protonix IV] 40 mg IV NOW STA
CR Chest - 2 Views Urgent
Comment:
Reason For Exam: left chest pain
08/25/24 16:50
CT Abd/pelvis W Iv Cont Urgent
Comment:
Reason For Exam: epigastric pain, elevated lipase
0.9% Sodium Chloride 1000 ml [Nss] 1,000 ml IV BOLUS
08/25/24 18:33
Troponin I Urgent
Abnormal Lab Results
08/25/24 08/25/24
15:29 15:30
WBC 13.2 H 10^3/uL
(4.8-10.8)
Abs Immat Gran (auto) 0.1 H 10^3/uL
(0-0.05)
Absolute Neuts (auto) 9.0 H 10^3/uL
(1.4-6.5)
Absolute Monos (auto) 1.2 H 10^3/uL
(0.1-0.6)
Immature Gran % 0.8 H %
(0-0.5)
Glucose 155 H mg/dl
(70-99)
Lipase 387 H U/L
(23-300)
08/25/24 15:30
08/25/24 15:29
Vital Signs
Initial and Last Documented VS:
Initial Vital Signs
Temp Pulse Resp BP Pulse Ox
98.2 F 63 16 145/89 99
08/25/24 14:12 08/25/24 14:12 08/25/24 14:12 08/25/24 14:12 08/25/24 14:12
Last Documented Vital Signs
Temp Pulse Resp BP Pulse Ox
98.2 F 64 21 114/68 96
08/25/24 14:12 08/25/24 16:36 08/25/24 16:36 08/25/24 19:00 08/25/24 19:45
<Lauren Armendariz PA-C - Last Filed: 08/26/24 14:48>
MDM/Problems Addressed
Differential Diagnosis Includes:
Not limited to: GERD, gastritis, pancreatitis, pericarditis, myocarditis, pneumonia, doubt ACS
MDM/Problems Addressed:
54 year old female w/ history as documented presenting with one week of intermittent chest discomfort and upper abdominal pain. No exertional or pleuritic component. Patient has been under a lot of stress recently and her mother recently passed
away. Vitals stable. Patient is afebrile and well appearing. Exam as above. EKG obtained in triage shows NSR with some non-specific ST changes without any acute ischemic changes. Labs were obtained which show a mild leukocytosis and mild elevation
in lipase. Initial troponin was undetectable. Given mild leukocytosis and elevation in lipase with epigastric tenderness a CT was obtained which shows no evidence of acute pancreatitis. Patient did get some relief from IV protonix and was given a
liter of NS. Workup thus far unremarkable. Low suspicion for ACS although will repeat troponin. Anticipate discharge with PCP f/u pending second troponin.
Chronic conditions affecting care:
Paroxysmal atrial fibrillation
Acute Exacerbation and/or Progression of Chronic Illness:
N/A
<Lauren Armendariz PA-C - Last Filed: 08/26/24 14:48>
*Radiology
Radiology exam reviewed: preliminary read by ED provider and radiology read reviewed
*Pulse Oximetry
Patient hypoxic: no
*EKG
Interpreted by ED Provider?: Yes
EKG Intrepretation Date: 08/25/24
Interpretation: abnormal
Heart Rate: 60
Rate: normal
Rhythm: sinus
[place]: normal axis
Interval: normal interval
Ischemia: non-specific ST changes
*Hogshead Inspector Interpretation
Rate: normal
Interpretation: normal
Heart Rate: 60
Rhythm: sinus
*Critical Care Note
Total Time (30-74mins, 75-104mins- exclusive of procedures): Not Applicable
<Lauren Armendariz PA-C - Last Filed: 08/26/24 14:48>
Update Note
Update Note:
Update 7:04 PM: Repeat troponin undetectable. Patient has remained stable. Low suspicion for emergent cardiac process. Feel patient is stable for discharge with PCP follow up. Will send course of PPI to treat possible GERD component. Return
precautions discussed. Patient comfortable with discharge.
ED Attending Note
<Lauren Armendariz PA-C - Last Filed: 08/26/24 14:48>
-
Portions of this chart may have been created with voice recognition software.� Occasional wrong word or��sound alike� substitutions may have occurred due to the inherent limitations of voice recognition software.
<Iker Keyes MD - Last Filed: 08/25/24 17:19>
ED Attending Note
Patient seen and examined by attending physician: Yes
I performed the substantive portion of visit, reviewed & personally made and approve the management plan that is documented in note by myself or JOAQUINA.: Yes
ED Attending Note:
I have seen and evaluated the patient with a [id number] encounter. I have spoken to the [PA] and involved in the medical history, the physical exam, medical decision making.
Evaluation and management service: agree unless noted differently below.
Results interpretation: agree unless noted differently below.
54-year-old woman presenting to the emergency department with midsternal chest pain. Patient states that about a week ago she had a cortisone injection in her knee and shortly after developed this epigastric/midsternal chest pain. It does not
radiate. She does state that she is been under a lot of stress lately especially with her family. It is not exertional. Is not pleuritic. On exam patient is resting comfortably. Her heart is regular rate and rhythm. She does have mild
epigastric tenderness to palpation. Differential consists of atypical ACS versus reflux or pancreatitis. Will check blood work EKG. Will obtain CT scan of the abdomen. Will also give GI cocktail. Anticipate discharge if everything is
unremarkable.
Discharge Plan
Departure
Patient Disposition: Home (Routine Discharge)
Date of Disposition: 08/25/24
Time of Disposition: 19:41
Patient with high blood pressure during this ER visit?: No
Condition: Good
Discharge Problem:
Epigastric abdominal pain, Chest pain
Instructions: Acid Reflux and GERD in Adults (DC), Chest pain
Prescriptions:
New
pantoprazole 20 mg tablet,delayed release (DR/EC)
20 mg PO DAILY 14 Days Qty: 14 0RF
No Action
flecainide 100 mg Tablet
100 mg PO BID
magnesium oxide 500 mg magnesium Tablet
500 mg PO HS
metoprolol succinate 25 mg Tablet Extended Release 24 Hr
25 mg PO BID
carboxymethylcellulose sodium 1 % Drops, Liquid Gel
1 - 3 drp BOTH EYES QIDPRN PRN (Reason: dry eyes)
Eliquis 5 mg Tablet
5 mg PO Q12H
Referrals:
UNKNOWN - PT DOES,NOT KNOW [Family Provider] -
Activity Restrictions/Additional Instructions:
RETURN TO THE EMERGENCY DEPARTMENT WITH ANY FEVERS, CHILLS, SEVERE ABDOMINAL PAIN, INTRACTABLE NAUSEA/VOMITING, CHEST PAIN, SHORTNESS OF BREATH, WORSENING IN CURRENT SYMPTOMS, OR ANY OTHER CONCERNS
-It is important to stay well-hydrated. You should follow a bland diet and limit spicy/acidic foods.
-A prescription for pantoprazole has been sent to your pharmacy. You can take this once a day for the next 2 weeks. If this does improve symptoms�your primary care may send this course.
-You should follow-up with your primary care in a few days for further evaluation/management to ensure that symptoms are improved
Monitor your symptoms closely and return to the emergency department any acute worsening/new symptoms or any other concerns
Interventions
Interventions:
*Risk Screen - Suicide Last Done: 08/25/24 15:22
*General Assessment Last Done: 08/25/24 15:22
*Neglect/Abuse Screening Last Done: 08/25/24 15:22
*ED COVID-19 Vaccine History Last Done: 08/25/24 15:22
*Nursing Disposition Last Done: 08/25/24 19:59
ED- Cardiac Assessment Last Done: 08/25/24 15:31
Discharge Date and Time
Discharge Date/Time: 08/25/24 20:09
Print Language: GREEK
[2024-08-25] MEDS: PROTONIX IV 40 MG IV (15:37)
[2024-08-25 15:39] LABS: % Basophils 0.3 % (0-2); % Eosinophils 0.2 % (0-6); % Immature Granulocytes 0.8 % (0-0.5); % Lymphocytes 21.8 % (20.5-51.1); % Monocytes 9.1 % (1.7-9.3); % Neutrophils 67.8 % (42.2-75.2); Absolute Immature Granulocytes 0.1 10^3/uL (0-0.05); Absolute Lymphocytes 2.9 10^3/uL (1.2-3.4); Absolute Monocytes 1.2 10^3/uL (0.1-0.6); Hematocrit 45.2 % (37.0-47.0); Hemoglobin 15.4 g/dL (12.0-16.0); Mean Corp Hgb Conc. 34.1 g/dL (33.0-37.0); Mean Corpuscular Hgb 28.8 pg (27.0-31.0); Mean Corpuscular Volume 84.5 fL (81.0-99.0); Nucleated Red Blood Cells % 0 %; Platelet Count 341 10^3/uL (130-400); Red Blood Cell Count 5.35 10^6/uL (4.20-5.40); Red Cell Dist. Width 13.2 % (11.5-14.5); White Blood Cell Count 13.2 10^3/uL (4.8-10.8)
[2024-08-25 15:53] LABS: ALT (SGPT) 19 U/L (0-35); AST (SGOT) 21 U/L (14-36); Albumin 4.3 g/dl (3.5-5.0); Alkaline Phosphatase 123 U/L (38-126); Blood Urea Nitrogen 16 mg/dl (7-17); Calcium 9.8 mg/dl (8.4-10.2); Carbon Dioxide 27 mmol/L (22-30); Chloride 101 mmol/L (98-107); Glucose 155 mg/dl (70-99); Lipase 387 U/L (23-300); Potassium 4.2 mmol/L (3.5-5.1); Sodium 138 mmol/L (135-145); Total Bilirubin 0.6 mg/dl (0.2-1.3); Total Protein 6.9 g/dl (6.3-8.2); eGFR > 60.00
[2024-08-25 16:06] LABS: Troponin I < 0.012 ng/ml
[2024-08-25] MEDS: NSS 1000 IV (16:53)
[2024-08-25 19:08] LABS: Troponin I < 0.012 ng/ml
== END 2024-08-25 20:09 | disposition home or self-care (01) ==
LOC: EMR 14:09
PROVIDERS: Physician Assistant; EMERGENCY PHYSICIAN Student in an Organized Health Care Education/Training Program
DX: R10.13 Epigastric pain (principal); R07.89 Other chest pain; I48.0 Paroxysmal atrial fibrillation; E11.9 Type 2 diabetes mellitus without complications; Z79.01 Long term (current) use of anticoagulants; Z87.891 Personal history of nicotine dependence; Z90.710 Acquired absence of both cervix and uterus
CPT/HCPCS: 96374; 96361; 99285; 71046; 74177; 80053; 83690; 84484; 85025; 93005; Q9967

== ENCOUNTER 2024-09-21 03:59 | Emergency (ER) | payer MEDICARE, OTHER, SELFPAY ==
[2024-09-21] VITALS (7 sets, daily range): BP systolic 108–154; BP diastolic 66–86; BMI 34.6
--- NOTE | 2024-09-21 05:03 | ED.GENMED ---
History of Present Illness
<ZAIDA Ambrosio - Last Filed: 09/22/24 17:59>
General
Chief Complaint: Heart Rate Problem
Source: patient
Exam Limitations: none
Time Seen by Provider: 09/21/24 04:45
History of Present Illness
History of Present Illness:
This is a 54 year old female that comes in with c/o irregular heart beat. States that she was sitting watching TV when she started to feel her heart in her neck. States that she got scarred and got her Watch which tells her if she is in atrial fib.
States that she checked her pulse and it said that she had a QRS and she got scarred so she came in. Denies any fever, chills, chest pain, SOB, abd pain, nausea, vomiting, diarrhea, headache, dizziness, urinary burning.
Past History
<ZAIDA Ambrosio - Last Filed: 09/22/24 17:59>
Past History
ED Past Medical History: Arrthythmia (Atrial fib, PVC's, ), Asthma, Cancer (Uterine CA), NIDDM, Other (Renal calculus, UTI. Interstitial cystitis, ) and Other (History of kidney stones, IBS, Intracranial bleed, Sciatica, TBI, Sleep apnea, )
ED Past Surgical History: Appendectomy, Cardiac (Ablation, ), Gynecological (Hysterectomy with One ovary removed, ) and Orthopedic (Facial surgery, )
Social History
Tobacco: Former smoker
Alcohol: None
Drug: None
Personal:
Living: with family
Employment: Employed
Family History
Family History: Other (Noncontributory)
Review of Systems
<ZAIDA Ambrosio - Last Filed: 09/22/24 17:59>
Review of Systems
All Other Systems: ROS reviewed and negative except as documented in HPI and ROS
Constitutional: Reports no symptoms; Denies fever or chills
EENT: Reports no symptoms
Respiratory: Reports no symptoms; Denies cough or trouble breathing
Cardiac: Reports palpitations; Denies chest pain
ABD/GI: Reports no symptoms; Denies abdominal pain, nausea, vomiting or diarrhea
: Reports no symptoms; Denies dysuria, frequency or urgency
Musculoskeletal: Reports no symptoms
Skin: Reports no symptoms
Neurological: Reports no symptoms; Denies dizzy or headache
Psychiatric: Reports no symptoms
Phy Exam
<ZAIDA Ambrosio - Last Filed: 09/22/24 17:59>
General Physical Exam
General Presentation: well appearing and no apparent distress
General age: appears stated age
General Skin: warm and dry
General Habitus: normal
General Mental: alert
General Hydration: appears well hydrated
ENT Exam
ENT Exam: TM's normal, pharynx normal and neck supple
Cardiovascular Exam
Cardiovascular Exam: regular rate/rhythm, no edema, normal peripheral pulses and other (Occasional PAC's/PVC's noted)
Pulmonary Exam
Pulmonary Exam: lungs clear, no respiratory distress, no rales, chest non tender, no crackles, no rhonchi, no wheezing and no cough
Gastrointestinal Exam
Gastrointestinal Exam: normal bowel sounds, non tender, soft, no organomegaly, no pulsatile mass and non distended
Musculoskeletal Exam
Musculoskeletal Exam: full ROM and no edema
Skin Exam
Skin Exam: normal color, warm/dry, no rash and no petechia
Psychiatric Exam
Psychiatric Exam: normal mood/affect
Course
<ZAIDA Ambrosio - Last Filed: 09/22/24 17:59>
Orders/Labs/Results
Orders:
Orders
09/21/24 04:01
EKG [Electrocardiogram (*1)] Urgent
Reason for Study: Bradycardia / Tachycardia
EKG- Treatment ONCE
09/21/24 05:03
0.9% Sodium Chloride 1000 ml [Nss] 1,000 ml IV BOLUS
09/21/24 05:19
Complete Blood Count/With Diff Urgent
Comprehensive Metabolic Panel Urgent
Troponin I Urgent
Abnormal Lab Results
09/21/24
05:19
WBC 10.9 H 10^3/uL
(4.8-10.8)
MCHC 32.9 L g/dL
(33.0-37.0)
Abs Immat Gran (auto) 0.1 H 10^3/uL
(0-0.05)
Absolute Lymphs (auto) 3.7 H 10^3/uL
(1.2-3.4)
Absolute Monos (auto) 0.8 H 10^3/uL
(0.1-0.6)
BUN 19 H mg/dl
(7-17)
Creatinine 0.5 L mg/dL
(0.6-1.0)
Glucose 142 H mg/dl
(70-99)
Alkaline Phosphatase 131 H U/L
(38-126)
09/21/24 05:19
09/21/24 05:19
Vital Signs
Initial and Last Documented VS:
Initial Vital Signs
Temp Pulse Resp BP Pulse Ox
98.6 F 66 16 154/86 98
09/21/24 04:20 09/21/24 04:20 09/21/24 04:20 09/21/24 04:20 09/21/24 04:20
Last Documented Vital Signs
Temp Pulse Resp BP Pulse Ox
98.6 F 60 14 123/79 98
09/21/24 04:20 09/21/24 08:15 09/21/24 08:15 09/21/24 08:00 09/21/24 08:15
<Marquise Prasad, - Last Filed: 09/21/24 08:10>
Orders/Labs/Results
Orders:
Orders
09/21/24 04:01
EKG [Electrocardiogram (*1)] Urgent
Reason for Study: Bradycardia / Tachycardia
EKG- Treatment ONCE
09/21/24 05:03
0.9% Sodium Chloride 1000 ml [Nss] 1,000 ml IV BOLUS
09/21/24 05:19
Complete Blood Count/With Diff Urgent
Comprehensive Metabolic Panel Urgent
Troponin I Urgent
Abnormal Lab Results
09/21/24
05:19
WBC 10.9 H 10^3/uL
(4.8-10.8)
MCHC 32.9 L g/dL
(33.0-37.0)
Abs Immat Gran (auto) 0.1 H 10^3/uL
(0-0.05)
Absolute Lymphs (auto) 3.7 H 10^3/uL
(1.2-3.4)
Absolute Monos (auto) 0.8 H 10^3/uL
(0.1-0.6)
BUN 19 H mg/dl
(7-17)
Creatinine 0.5 L mg/dL
(0.6-1.0)
Glucose 142 H mg/dl
(70-99)
Alkaline Phosphatase 131 H U/L
(38-126)
09/21/24 05:19
09/21/24 05:19
Vital Signs
Initial and Last Documented VS:
Initial Vital Signs
Temp Pulse Resp BP Pulse Ox
98.6 F 66 16 154/86 98
09/21/24 04:20 09/21/24 04:20 09/21/24 04:20 09/21/24 04:20 09/21/24 04:20
Last Documented Vital Signs
Temp Pulse Resp BP Pulse Ox
98.6 F 60 14 123/79 98
09/21/24 04:20 09/21/24 08:15 09/21/24 08:15 09/21/24 08:00 09/21/24 08:15
<ZAIDA Ambrosio - Last Filed: 09/22/24 17:59>
MDM/Problems Addressed
Differential Diagnosis Includes:
Palpitations, Dehydration
MDM/Problems Addressed:
This is a 54 year old female that comes in with c/o irregular heart beat. States that she checked her heart on her watch as she thought she was going into atrial fib and it told her that her QRS was wide so she came in as she got scarred.
Will check labs, ECG and give IV fluids.
Chronic conditions affecting care:
Palpitations, Atrial fib
Acute Exacerbation and/or Progression of Chronic Illness:
Palpitations
<ZAIDA Ambrosio - Last Filed: 09/22/24 17:59>
*Pulse Oximetry
Patient hypoxic: no
*EKG
Interpreted by ED Provider?: Yes
Heart Rate: 64
Rate: normal
Rhythm: sinus and PVC's
[place]: normal axis
Interval: normal interval
QRS Pattern: normal QRS
Ischemia: no ischemia
*Lead Shipper Interpretation
Rate: normal
Heart Rate: 64
Rhythm: sinus and PVC's
*Critical Care Note
Total Time (30-74mins, 75-104mins- exclusive of procedures): Not Applicable
ED Attending Note
<ZAIDA Ambrosio - Last Filed: 09/22/24 17:59>
-
Portions of this chart may have been created with voice recognition software.� Occasional wrong word or��sound alike� substitutions may have occurred due to the inherent limitations of voice recognition software.
<Marquise Prasad DO - Last Filed: 09/21/24 08:10>
ED Attending Note
Patient seen and examined by attending physician: Yes
I performed the substantive portion of visit, reviewed & personally made and approve the management plan that is documented in note by myself or JOAQUINA.: Yes
ED Attending Note:
54-year-old female who has a history of A-fib who presents after she had palpitations at home. Noted by her home Daniel that she had PVCs but also mentioned on one of her tracings that she had a 'wide-complex QRS'. The patient just wanted to get
checked because she has a history in the past of having a long QT. She now feels much better. Symptoms have resolved. Exam: Awake and alert, no respiratory distress, normal sinus rhythm on telemetry. Assessment and plan: EKG grossly unremarkable
with occasional PVC. That has since resolved and on telemetry there are no further PVCs. 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 QT reasonable
Discharge Plan
Departure
Patient Disposition: Home (Routine Discharge)
Date of Disposition: 09/21/24
Time of Disposition: 08:06
Patient with high blood pressure during this ER visit?: No
Condition: Good
Covid-19: Not Applicable
Discharge Problem:
Heart palpitations
Instructions: Palpitations (DC)
Prescriptions:
No Action
flecainide 100 mg Tablet
100 mg PO BID
magnesium oxide 500 mg magnesium Tablet
500 mg PO HS
metoprolol succinate 25 mg Tablet Extended Release 24 Hr
25 mg PO BID
carboxymethylcellulose sodium 1 % Drops, Liquid Gel
1 - 3 drp BOTH EYES QIDPRN PRN (Reason: dry eyes)
Eliquis 5 mg Tablet
5 mg PO Q12H
pantoprazole 20 mg tablet,delayed release (DR/EC)
20 mg PO DAILY 14 Days Qty: 14 0RF
Activity Restrictions/Additional Instructions:
Please see your taxi driver supervisor in follow-up in the next 2 weeks. Return immediate for palpitations, weakness of any kind, shortness of breath, chest pain or any other concerns.
Interventions
Interventions:
*Risk Screen - Suicide Last Done: 09/21/24 04:11
*General Assessment Last Done: 09/21/24 04:16
*Neglect/Abuse Screening Last Done: 09/21/24 04:16
ED- Fall Risk Assessment Last Done: 09/21/24 04:16
*ED COVID-19 Vaccine History Last Done: 09/21/24 04:16
*Nursing Disposition Last Done: 09/21/24 08:25
ED- Cardiac Assessment Last Done: 09/21/24 05:50
ED- Pulmonary Assessment Last Done: 09/21/24 05:50
Discharge Date and Time
Discharge Date/Time: 09/21/24 08:25
Print Language: GEORGIAN
[2024-09-21] MEDS: NSS 1000 IV (05:22)
[2024-09-21 05:54] LABS: % Basophils 0.5 % (0-2); % Eosinophils 1.2 % (0-6); % Immature Granulocytes 0.5 % (0-0.5); % Lymphocytes 33.9 % (20.5-51.1); % Monocytes 6.9 % (1.7-9.3); Absolute Basophils 0.1 10^3/uL (0-0.2); Absolute Eosinophils 0.1 10^3/uL (0-0.7); Absolute Immature Granulocytes 0.1 10^3/uL (0-0.05); Absolute Lymphocytes 3.7 10^3/uL (1.2-3.4); Absolute Monocytes 0.8 10^3/uL (0.1-0.6); Absolute Neutrophils 6.2 10^3/uL (1.4-6.5); Hematocrit 45.6 % (37.0-47.0); Mean Corp Hgb Conc. 32.9 g/dL (33.0-37.0); Mean Corpuscular Hgb 28.3 pg (27.0-31.0); Mean Platelet Volume 8.8 fL (7.4-10.4); Nucleated Red Blood Cells % 0 %; Platelet Count 291 10^3/uL (130-400); Red Cell Dist. Width 13.3 % (11.5-14.5); White Blood Cell Count 10.9 10^3/uL (4.8-10.8)
[2024-09-21 06:20] LABS: ALT (SGPT) 24 U/L (0-35); AST (SGOT) 32 U/L (14-36); Albumin 4.1 g/dl (3.5-5.0); Alkaline Phosphatase 131 U/L (38-126); Blood Urea Nitrogen 19 mg/dl (7-17); Calcium 9.5 mg/dl (8.4-10.2); Carbon Dioxide 28 mmol/L (22-30); Chloride 102 mmol/L (98-107); Estimated Creatinine Clearance 111 ml/min; Glucose 142 mg/dl (70-99); Sodium 139 mmol/L (135-145); Total Bilirubin 0.3 mg/dl (0.2-1.3); Total Protein 6.7 g/dl (6.3-8.2); eGFR > 60.00
[2024-09-21 06:22] LABS: Troponin I < 0.012 ng/ml
== END 2024-09-21 08:25 | disposition home or self-care (01) ==
LOC: EMR 03:59
PROVIDERS: Clinical Nurse Specialist Family Health; EMERGENCY PHYSICIAN Emergency Medicine; FAMILY PHYSICIAN Student in an Organized Health Care Education/Training Program
DX: R00.2 Palpitations (principal); E11.9 Type 2 diabetes mellitus without complications; G47.30 Sleep apnea, unspecified; J45.909 Unspecified asthma, uncomplicated; Z85.42 Personal history of malignant neoplasm of other parts of uterus; Z87.891 Personal history of nicotine dependence; Z90.49 Acquired absence of other specified parts of digestive tract; Z90.710 Acquired absence of both cervix and uterus
CPT/HCPCS: 96360; 96361; 99284; 80053; 84484; 85025; 93005

== ENCOUNTER 2024-11-16 07:51 | Emergency (ER) | payer MEDICARE, OTHER, SELFPAY ==
[2024-11-16] VITALS (28 sets, daily range): BP systolic 94–128; BP diastolic 55–96
[2024-11-16 08:36] LABS: % Basophils 0.5 % (0-2); % Eosinophils 1.6 % (0-6); % Immature Granulocytes 0.5 % (0-0.5); % Lymphocytes 24.9 % (20.5-51.1); % Monocytes 5.7 % (1.7-9.3); % Neutrophils 66.8 % (42.2-75.2); Absolute Basophils 0.1 10^3/uL (0-0.2); Absolute Eosinophils 0.2 10^3/uL (0-0.7); Absolute Immature Granulocytes 0.1 10^3/uL (0-0.05); Absolute Lymphocytes 2.9 10^3/uL (1.2-3.4); Absolute Monocytes 0.7 10^3/uL (0.1-0.6); Absolute Neutrophils 7.7 10^3/uL (1.4-6.5); Hematocrit 46.1 % (37.0-47.0); Hemoglobin 15.3 g/dL (12.0-16.0); Mean Corp Hgb Conc. 33.2 g/dL (33.0-37.0); Mean Corpuscular Hgb 28.8 pg (27.0-31.0); Mean Corpuscular Volume 86.8 fL (81.0-99.0); Mean Platelet Volume 8.5 fL (7.4-10.4); Nucleated Red Blood Cells % 0 %; Platelet Count 307 10^3/uL (130-400); Red Blood Cell Count 5.31 10^6/uL (4.20-5.40); Red Cell Dist. Width 13.5 % (11.5-14.5); White Blood Cell Count 11.6 10^3/uL (4.8-10.8)
[2024-11-16 08:53] LABS: ALT (SGPT) 15 U/L (0-35); AST (SGOT) 22 U/L (14-36); Albumin 4.7 g/dl (3.5-5.0); Alkaline Phosphatase 133 U/L (38-126); Blood Urea Nitrogen 12 mg/dl (7-17); Calcium 9.2 mg/dl (8.4-10.2); Carbon Dioxide 25 mmol/L (22-30); Chloride 104 mmol/L (98-107); Glucose 169 mg/dl (70-99); Potassium 3.6 mmol/L (3.5-5.1); Sodium 140 mmol/L (135-145); Total Bilirubin 0.9 mg/dl (0.2-1.3); Total Protein 7.4 g/dl (6.3-8.2); eGFR > 60.00
[2024-11-16] MEDS: NSS 500 IV (09:52)
[2024-11-16] MEDS: CARDIZEM 15 MG IV (09:52)
[2024-11-16 09:57] LABS: Magnesium 2.1 mg/dl (1.6-2.3)
[2024-11-16] MEDS: CARDIZEM 125 IV (10:00)
--- NOTE | 2024-11-16 10:02 | ED.GENMED ---
History of Present Illness
General
Chief Complaint: Heart Rate Problem
Source: patient
Exam Limitations: none
Time Seen by Provider: 11/16/24 09:21
Nursing documentation reviewed up to this point in time: agreed with
History of Present Illness
History of Present Illness:
Patient with history of paroxysmal atrial fibrillation on flecainide and Eliquis, presents to ED secondary to sudden onset of palpitations along with shortness of breath, shortly after waking up this morning, when she was walking to the bathroom.
Patient felt as though she was back in atrial fibrillation rhythm, which has happened previously. Denies chest pain. Denies dizziness. Denies vomiting or diarrhea. Denies recent illness. Denies recent change in medications or diet. Patient
states that she has been to ED for similar complaint, and has converted spontaneously with IV Cardizem. Patient primary assistant winemaker is at [facility].
Past History
Past History
ED Past Medical History: Arrthythmia (Atrial fib, PVC's, ), Asthma, Cancer (Uterine CA), NIDDM, Other (Renal calculus, UTI. Interstitial cystitis, ) and Other (History of kidney stones, IBS, Intracranial bleed, Sciatica, TBI, Sleep apnea, )
ED Past Surgical History: Appendectomy, Cardiac (Ablation, ), Gynecological (Hysterectomy with One ovary removed, ) and Orthopedic (Facial surgery, )
Social History
Tobacco: Former smoker
Alcohol: None
Drug: None
Personal:
Living: with family
Employment: Employed
Family History
Family History: Other (Noncontributory)
Review of Systems
Review of Systems
Allergies reviewed?: Yes
All Other Systems: ROS reviewed and negative except as documented in HPI and ROS
Constitutional: Reports no symptoms
EENT: Reports no symptoms
Respiratory: Reports trouble breathing
Cardiac: Reports palpitations
ABD/GI: Reports no symptoms
Musculoskeletal: Reports no symptoms
Skin: Reports no symptoms
Neurological: Reports no symptoms; Denies dizzy or headache
Phy Exam
Physical Exam
Physical Exam:
Physical Exam
General: no apparent distress, not acutely ill. afebrile. tachycardic.
Head: nc/at. eomi
Neck: supple. normal range of motion.
Heart: irregularly irregular, no murmur.
Lungs: no acute respiratory distress. clear bilaterally
Abdomen: normal bowel sounds. not tender.
Neuro: alert and oriented x 3. no focal neurological deficits
Skin: no rash
Psychiatric: well kept. interactive and cooperative
Extremities: no edema. no calf tenderness.
Course
Orders/Labs/Results
Orders:
Orders
11/16/24 08:04
Electrocardiogram (*1) Urgent
Reason for Study: Chest Pain
EKG- Treatment ONCE
11/16/24 08:15
Complete Blood Count/With Diff Urgent
Comprehensive Metabolic Panel Urgent
Magnesium Urgent
Comment: ADD ON
TSH Reflex To Free T4 Urgent
Comment: ADD ON
11/16/24 09:31
Add On- LAB Urgent
Tests Added?: magnesium, TSH to reflex Free T4
0.9% Sodium Chloride 500 ml [Nss] 500 ml IV BOLUS
Diltiazem HCl [Cardizem] 15 mg IV NOW STA
11/16/24 09:45
Diltiazem 125 mg/125 ml Nss [Cardizem] 125 mg in 125 ml IV PER PROTOCOL
Initial dose in mg/hr, then titrate:: 5
Titrate to keep:: Heart rate 80-100 bpm
Titrate by mg/hr:: 5 mg/hr
Frequency of titrations (minutes):: 15
Maximum dose in mg/hr:: 15
11/16/24 10:15
Flecainide [Tambocor] 100 mg PO NOW STA
11/16/24 14:55
Metoprolol [Lopressor] 5 mg IV NOW STA
11/16/24 16:40
PRN Pain Medication Management As Directed
May give lesser potent ordered pain med per pt: Yes
preference::
Protocol:: Medication orders for pain may be administered in a
manner that supports deferring to patient preference
when the pt is:
- Requesting an ordered lesser potent pain medication.
Least to most potent pain medications are defined
as: acetaminophen < NSAID < tramadol < opioids
(morphine, oxycodone, hydromorphone).
- Requesting a lesser dose of the same medication IF
ORDERED.
- Requesting a less intrusive route of administration
if both routes are prescribed by the provider (PO <
IV).
11/16/24 17:21
Metoprolol [Lopressor] 25 mg PO NOW STA
Abnormal Lab Results
11/16/24
08:15
WBC 11.6 H 10^3/uL
(4.8-10.8)
Abs Immat Gran (auto) 0.1 H 10^3/uL
(0-0.05)
Absolute Neuts (auto) 7.7 H 10^3/uL
(1.4-6.5)
Absolute Monos (auto) 0.7 H 10^3/uL
(0.1-0.6)
Creatinine 0.5 L mg/dL
(0.6-1.0)
Glucose 169 H mg/dl
(70-99)
Alkaline Phosphatase 133 H U/L
(38-126)
11/16/24 08:15
11/16/24 08:15
Vital Signs
Initial and Last Documented VS:
Initial Vital Signs
Temp Pulse Resp BP Pulse Ox
98.2 F 113 16 128/88 98
11/16/24 08:02 11/16/24 08:02 11/16/24 08:02 11/16/24 08:02 11/16/24 08:02
Last Documented Vital Signs
Temp Pulse Resp BP Pulse Ox
98.2 F 117 19 107/68 95
11/16/24 08:02 11/16/24 18:00 11/16/24 18:00 11/16/24 16:50 11/16/24 16:50
MDM/Problems Addressed
MDM/Problems Addressed:
Patient started on Cardizem infusion after initial bolus and IV fluids. Patient remains tachycardic and in atrial fibrillation rhythm during observation.
Pt evaluated in ED by Dr.Robert Waite (cardiology) - recommends either cardioversion or increasing toprol medication along with outpatient f/u with her primary assistant winemaker. At this time, when discussing consent for sedation/cardioversion, pt
prefers to go home with medication adjustment. As such, patient will be recommended to double up on her home toprol dose upon discharge, with consideration to return to ED with worsening symptoms.
Critical care statement: A total of 40 minutes of critical care time was provided for this patient. This includes management of unstable vital signs, evaluation of the patient at bedside, reviewing the patient's pertinent medical records, review of
old EKGs and review of pertinent medical records. This time with separate from time utilized to perform the aforementioned documented procedures
*EKG
Interpreted by ED Provider?: Yes
EKG Intrepretation Date: 11/16/24
Heart Rate: 134
Rate: tachycardiac
Rhythm: atrial flutter
[place]: normal axis
Interval: normal interval
*Critical Care Note
Total Time (30-74mins, 75-104mins- exclusive of procedures): 40 min
ED Attending Note
-
Portions of this chart may have been created with voice recognition software.� Occasional wrong word or��sound alike� substitutions may have occurred due to the inherent limitations of voice recognition software.
Discharge Plan
Departure
Patient Disposition: Home (Routine Discharge)
Date of Disposition: 11/16/24
Time of Disposition: 16:20
Admit to: Telemetry
Patient with high blood pressure during this ER visit?: Yes
Discharge Problem:
Atrial fibrillation, rapid
Instructions: Atrial Fibrillation (DC)
Prescriptions:
No Action
flecainide 100 mg Tablet
100 mg PO BID
magnesium oxide 500 mg magnesium Tablet
500 mg PO HS
metoprolol succinate 25 mg Tablet Extended Release 24 Hr
25 mg PO BID
Eliquis 5 mg Tablet
5 mg PO Q12H
Referrals:
UNKNOWN - PT DOES,NOT KNOW [Family Provider] -
Activity Restrictions/Additional Instructions:
As discussed, please follow-up with your assistant winemaker next week for reevaluation. In the meantime, please increase your Toprol medication to twice daily.
Interventions
Interventions:
*Risk Screen - Suicide Last Done: 11/16/24 08:02
*General Assessment Last Done: 11/16/24 08:48
*Neglect/Abuse Screening Last Done: 11/16/24 08:02
ED- Fall Risk Assessment Last Done: 11/16/24 11:27
*ED COVID-19 Vaccine History Last Done: 11/16/24 08:48
*Nursing Disposition Last Done: 11/16/24 18:20
ED- Cardiac Assessment Last Done: 11/16/24 08:48
ED- Pulmonary Assessment Last Done: 11/16/24 08:48
Discharge Date and Time
Discharge Date/Time: 11/16/24 18:21
Print Language: RWANDAN
[2024-11-16] MEDS: TAMBOCOR 100 MG PO (10:25)
[2024-11-16 11:42] LABS: TSH Reflex To Free T4 1.36 uIU/ml (0.47-4.68)
[2024-11-16] MEDS: LOPRESSOR 5 MG IV (14:59)
--- NOTE | 2024-11-16 16:24 | HPS.HSE ---
Family Physician
-
Family Physician: NOT KNOW UNKNOWN - PT DOES
Chief Complaint
-
palpitation
History of Present Illness
54-year-old with past medical history for A-fib, type 2 diabetes presented to us with sudden onset of palpitations along with shortness of breath, shortly after waking up this morning. She felt the palpitation and fluttering of the chest while she
was laying in bed. Patient stated short of breath. Patient denied any headache, dizziness or syncope. Patient denies any fever or chills, congestion, cough patient denied any abdominal pain, nausea, vomiting or diarrhea. Patient denied
dysuria,hematuria.
On arrival patient was in A-fib with RVR. Initiated on Cardizem drip. Admitting for further management
Medical History
Past Medical History
Past Medical History: Reports Other
Additional Past Medical History:
Paroxysmal A-fib
Type 2 diabetes
Obstructive sleep apnea
Depression
IBS
Fatty liver
Uterine fibroids
Past Surgical History: Reports Other
Additional Past Surgical History:
Right orbital reconstruction
Multiple facial surgeries
Cardiac ablation
Cystoscopy
Facial surgery
Hysterectomy
DNC
Social History
Tobacco: Non-smoker
Alcohol: None
Drug: None
Family History
Family History: Not pertinent
Allergies / Home Medications
Allergies reflects when Allergies were last updated in [email or web address].
Home Medications with original date entered in [email or web address]
Allergy/Medication List:
Allergies
Allergy/AdvReac Type Severity Reaction Status Date / Time
ciprofloxacin [From Cipro] Allergy muscle pain Verified 11/16/24 08:01
codeine Allergy gi sx Verified 11/16/24 08:01
epinephrine Allergy Unknown Verified 11/16/24 08:01
EKG Stickers Allergy Hives Uncoded 11/16/24 08:01
Home Medications
apixaban 5 mg tablet (Eliquis) 5 mg PO Q12H Blood Clot Prevention/Tx 02/21/24
carboxymethylcellulose sodium 1 % eye liquid gel drops 1 - 3 drp BOTH EYES QIDPRN PRN dry eyes 02/21/24
flecainide 100 mg tablet 100 mg PO BID Arrhythmia 02/21/24
magnesium oxide 500 mg PO HS Supplement 02/21/24
metoprolol succinate 25 mg tablet,extended release 24 hr 25 mg PO BID blood pressure/heart disease 02/21/24
pantoprazole 20 mg tablet,delayed release 20 mg PO DAILY 2 weeks #14 tabs 08/25/24
Review of Systems
-
Constitutional: Reports No Symptoms
EENT: Reports No Symptoms
Respiratory: Reports No Symptoms
Cardiac: Reports Palpitations
Abdomen/GI: Reports No Symptoms
: Reports No Symptoms
Musculoskeletal: Reports No Symptoms
Skin: Reports No Symptoms
Neurological: Reports No Symptoms
Endocrine: Reports No Symptoms
Hematologic/Lymphatic: Reports No Symptoms
Psych: Reports No Symptoms
Physical Exam
Vital Signs
Vital Signs
Temp Pulse Resp BP Pulse Ox
98.2 F 112 21 104/71 91
11/16/24 08:02 11/16/24 15:45 11/16/24 15:45 11/16/24 15:40 11/16/24 15:45
Physical Exam
General: Well Developed, Well Nourished and No Apparent Distress
HEENT: NormoCephalic, Moist mucous membranes and Atraumatic
Respiratory: Clear
Cardiac: Irregular Rhythm and Tachycardia; No Murmur or Rub
GI: Soft, Non Tender, Non Distended and Normal Bowel Sounds; No Organomegaly
Rectal: Deferred by Provider
Musculoskeletal: No Clubbing, No Cyanosis and No Edema
Skin: No Rash
Neuro: AO x 3 and Nonfocal/grossly intact
Psych: Calm
Laboratory Results
-
11/16/24 08:15
11/16/24 08:15
Laboratory Results
Total Bilirubin 0.9 mg/dl (0.2-1.3) 11/16/24 08:15
AST 22 U/L (14-36) 11/16/24 08:15
ALT 15 U/L (0-35) 11/16/24 08:15
Alkaline Phosphatase 133 U/L (38-126) H 11/16/24 08:15
Data Reviewed
-
Lab Data: Labs Reviewed by me
Impression/Plan
-
# Rapid atrial fibrillation
-Continue Cardizem drip
-Continue Eliquis, flecainide, metoprolol
-Cardiology consult
# Chronic leukocytosis
-WBC 11.6
-Patient is afebrile
-Continue to monitor
DVT prophylaxis-continue Eliquis
# CODE STATUS
-Full code
[2024-11-16] MEDS: LOPRESSOR 25 MG PO (18:03)
== END 2024-11-16 18:21 | disposition home or self-care (01) ==
LOC: EMR 07:51
PROVIDERS: Emergency Medicine; EMERGENCY PHYSICIAN Emergency Medicine
DX: I48.0 Paroxysmal atrial fibrillation (principal); Z87.891 Personal history of nicotine dependence; Z79.01 Long term (current) use of anticoagulants
CPT/HCPCS: 99291; 96374; 96375; 96361; 80053; 83735; 84443; 85025; 93005

== ENCOUNTER 2025-01-02 09:13 | Emergency (ER) | payer MEDICARE, OTHER, SELFPAY ==
[2025-01-02 09:18] VITALS: BP 160/100
[2025-01-02 09:38] VITALS: BMI 34.4
[2025-01-02 09:40] VITALS: BP 130/84
[2025-01-02 10:01] VITALS: BP 111/61
[2025-01-02 10:27] LABS: ALT (SGPT) 16 U/L (0-35); AST (SGOT) 20 U/L (14-36); Albumin 3.8 g/dl (3.5-5.0); Alkaline Phosphatase 122 U/L (38-126); Blood Urea Nitrogen 16 mg/dl (7-17); Carbon Dioxide 25 mmol/L (22-30); Chloride 106 mmol/L (98-107); Estimated Creatinine Clearance 110 ml/min; Glucose 165 mg/dl (70-99); Sodium 137 mmol/L (135-145); Total Bilirubin 0.5 mg/dl (0.2-1.3); Total Protein 6.4 g/dl (6.3-8.2); eGFR > 60.00
--- NOTE | 2025-01-02 10:29 | ED.GENMED ---
History of Present Illness
General
Chief Complaint: Heart Rate Problem
Source: patient
Time Seen by Provider: 01/02/25 09:45
History of Present Illness
History of Present Illness:
54-year-old female presents emergency room stating she is in atrial fibrillation. She is feeling palpitations and a rapid heart rate. Patient has known history of paroxysmal atrial fibrillation. She had a ablation performed about 12 years ago.
She did well for a long time but recently has been going in and out of A-fib again. Patient does take flecainide. She is also taking Eliquis and has been compliant with her Eliquis. Patient took an extra dose of her metoprolol today. No chest
pain or shortness of breath. Patient states she rests. This is the case currently. Her primary trout farmer is at [facility].
Past History
Past History
ED Past Medical History: Arrthythmia (Atrial fib, PVC's, ), Asthma, Cancer (Uterine CA), NIDDM, Other (Renal calculus, UTI. Interstitial cystitis, ) and Other (History of kidney stones, IBS, Intracranial bleed, Sciatica, TBI, Sleep apnea, )
ED Past Surgical History: Appendectomy, Cardiac (Ablation, ), Gynecological (Hysterectomy with One ovary removed, ) and Orthopedic (Facial surgery, )
Social History
Tobacco: Former smoker
Alcohol: None
Drug: None
Personal:
Living: with family
Employment: Employed
Family History
Family History: Other (Noncontributory)
Phy Exam
Physical Exam
Physical Exam:
General: Awake, Alert, Oriented X3. No acute distress.
Vitals: unremarkable
Head: Atraumatic
Eyes: Pupils equal, EOMI
Throat: Airway intact, no exudates
Neck: Trachea midline
Lungs: Clear and equal b/l
Heart: Mildly tachycardic, irregular, no murmurs
Abd: Soft, Nontender, No pulsatile mass
Neuro: Nonfocal
Skin: Warm, dry, no rash
Extremities: pulses equal b/l, no edema
Course
Orders/Labs/Results
Orders:
Orders
01/02/25 09:13
EKG [Electrocardiogram (*1)] Urgent
Reason for Study: Atrial Fibrillation
01/02/25 09:14
EKG- Treatment ONCE
01/02/25 10:03
Complete Blood Count/With Diff Urgent
Comprehensive Metabolic Panel Urgent
01/02/25 10:28
Diltiazem 125 mg/125 ml Nss [Cardizem] 125 mg in 125 ml IV NOW
Initial dose in mg/hr, then titrate:: 5
Titrate to keep:: Heart rate 80-100 bpm
Titrate by mg/hr:: 5 mg/hr
Frequency of titrations (minutes):: 15
Maximum dose in mg/hr:: 15
Diltiazem HCl [Cardizem] 15 mg IV NOW STA
01/02/25 11:37
Electrocardiogram (*1) Urgent
Reason for Study: Other
Other Reason for Exam: pt converted
01/02/25 11:38
EKG- Treatment ONCE
Abnormal Lab Results
01/02/25
10:03
Creatinine 0.5 L mg/dL
(0.6-1.0)
Glucose 165 H mg/dl
(70-99)
01/02/25 10:03
01/02/25 10:03
Vital Signs
Initial and Last Documented VS:
Initial Vital Signs
Temp Pulse Resp BP Pulse Ox
98.7 F 115 16 160/100 96
01/02/25 09:18 01/02/25 09:18 01/02/25 09:18 01/02/25 09:18 01/02/25 09:18
Last Documented Vital Signs
Temp Pulse Resp BP Pulse Ox
98.7 F 54 17 95/57 95
01/02/25 09:18 01/02/25 12:30 01/02/25 12:30 01/02/25 11:00 01/02/25 12:30
MDM/Problems Addressed
Differential Diagnosis Includes:
Paroxysmal a flutter, frequent PACs, SVT, sinus tachycardia
MDM/Problems Addressed:
Patient presents with abnormal heart rate. She is found to have a flutter with a rapid ventricular response on EKG. She was given a bolus of Cardizem followed by an infusion of 5 mg an hour. She spontaneously converted to sinus rhythm. Patient
stable for discharge home follow-up with cardiology as outpatient. Maintain her current medication regime. Repeat EKG shows sinus bradycardia
*Pulse Oximetry
Patient hypoxic: no
*EKG
Interpreted by ED Provider?: Yes
Interpretation: abnormal
Heart Rate: 116
Rate: tachycardiac
Rhythm: atrial flutter
Ischemia: non-specific ST changes
*Social Work Administrator Interpretation
Rate: tachycardiac
Interpretation: abnormal
Rhythm: atrial flutter
*Critical Care Note
Total Time (30-74mins, 75-104mins- exclusive of procedures): Not Applicable
ED Attending Note
-
Portions of this chart may have been created with voice recognition software.� Occasional wrong word or��sound alike� substitutions may have occurred due to the inherent limitations of voice recognition software.
Discharge Plan
Departure
Patient Disposition: Home (Routine Discharge)
Date of Disposition: 01/02/25
Time of Disposition: 11:35
Patient with high blood pressure during this ER visit?: No
Condition: Good
Discharge Problem:
Paroxysmal atrial flutter, Atrial flutter with rapid ventricular response
Instructions: Atrial flutter
Prescriptions:
No Action
flecainide 100 mg Tablet
100 mg PO BID
magnesium oxide 500 mg magnesium Tablet
500 mg PO HS
metoprolol succinate 25 mg Tablet Extended Release 24 Hr
25 mg PO BID
Eliquis 5 mg Tablet
5 mg PO Q12H
Referrals:
Riana Parsons CRNP [Family Provider] -
Michael Deleon MD [Active] -
Activity Restrictions/Additional Instructions:
I do not believe any changes to your medications are necessary. Call your trout farmer so they are aware you were here in the emergency room with an episode of atrial flutter. Return to the emergency room for any concerns. I have given you the
contact information for the access control officer from our other cardiology group based on your desire to see a different access control officer.
Interventions
Interventions:
*Risk Screen - Suicide Last Done: 01/02/25 09:20
*General Assessment Last Done: 01/02/25 09:41
*Neglect/Abuse Screening Last Done: 01/02/25 09:20
*ED- Fall Risk Assessment Last Done: 01/02/25 09:41
*ED COVID-19 Vaccine History Last Done: 01/02/25 09:41
*Nursing Disposition Last Done: 01/02/25 12:58
ED- Cardiac Assessment Last Done: 01/02/25 09:50
ED- Pulmonary Assessment Last Done: 01/02/25 09:52
Discharge Date and Time
Discharge Date/Time: 01/02/25 12:59
Print Language: DANISH
[2025-01-02 10:31] LABS: % Basophils 0.7 % (0-2); % Immature Granulocytes 0.3 % (0-0.5); % Lymphocytes 25.3 % (20.5-51.1); % Monocytes 6.5 % (1.7-9.3); % Neutrophils 65.2 % (42.2-75.2); Absolute Basophils 0.1 10^3/uL (0-0.2); Absolute Eosinophils 0.2 10^3/uL (0-0.7); Absolute Lymphocytes 2.4 10^3/uL (1.2-3.4); Absolute Monocytes 0.6 10^3/uL (0.1-0.6); Absolute Neutrophils 6.1 10^3/uL (1.4-6.5); Hematocrit 44.4 % (37.0-47.0); Hemoglobin 14.9 g/dL (12.0-16.0); Mean Corp Hgb Conc. 33.6 g/dL (33.0-37.0); Mean Corpuscular Hgb 29.6 pg (27.0-31.0); Mean Corpuscular Volume 88.3 fL (81.0-99.0); Mean Platelet Volume 9.1 fL (7.4-10.4); Nucleated Red Blood Cells % 0 %; Platelet Count 311 10^3/uL (130-400); Red Blood Cell Count 5.03 10^6/uL (4.20-5.40); Red Cell Dist. Width 13.2 % (11.5-14.5); White Blood Cell Count 9.4 10^3/uL (4.8-10.8)
[2025-01-02] MEDS: CARDIZEM 15 MG IV (10:40)
[2025-01-02] MEDS: CARDIZEM 125 IV (10:43)
[2025-01-02 10:50] VITALS: BP 103/80
[2025-01-02 11:00] VITALS: BP 95/57
== END 2025-01-02 12:59 | disposition home or self-care (01) ==
LOC: EMR 09:13
PROVIDERS: EMERGENCY PHYSICIAN Emergency Medicine; FAMILY PHYSICIAN Nurse Practitioner Family
DX: I48.92 Unspecified atrial flutter (principal); E11.9 Type 2 diabetes mellitus without complications; G47.30 Sleep apnea, unspecified; I48.0 Paroxysmal atrial fibrillation; J45.909 Unspecified asthma, uncomplicated; Z79.01 Long term (current) use of anticoagulants; Z85.42 Personal history of malignant neoplasm of other parts of uterus; Z87.891 Personal history of nicotine dependence; Z90.710 Acquired absence of both cervix and uterus; Z90.49 Acquired absence of other specified parts of digestive tract
CPT/HCPCS: 96365; 99284; 80053; 85025; 93005

== ENCOUNTER 2025-02-28 04:40 | Emergency (ER) | payer MEDICARE, OTHER, SELFPAY ==
[2025-02-28] VITALS (22 sets, daily range): BP systolic 89–133; BP diastolic 41–91; BMI 35.7
--- NOTE | 2025-02-28 04:58 | ED.GENMED ---
History of Present Illness
General
Chief Complaint: Heart Rate Problem
Source: patient
Time Seen by Provider: 02/28/25 04:53
History of Present Illness
History of Present Illness:
This a pleasant 54-year-old female presents emergency department with palpitations. She states that the palpitations began last evening and have persisted. Patient does have a history of paroxysmal atrial fibrillation and has been compliant on her
Eliquis. She did have a similar visit several months ago and reports that the Cardizem seem to have worked. Patient did have ablation in the past. Patient prefers not to be cardioverted.
Past History
Past History
ED Past Medical History: Arrthythmia (Atrial fib, PVC's, ), Asthma, Cancer (Uterine CA), NIDDM, Other (Renal calculus, UTI. Interstitial cystitis, ) and Other (History of kidney stones, IBS, Intracranial bleed, Sciatica, TBI, Sleep apnea, )
ED Past Surgical History: Appendectomy, Cardiac (Ablation, ), Gynecological (Hysterectomy with One ovary removed, ) and Orthopedic (Facial surgery, )
Social History
Tobacco: Former smoker
Alcohol: None
Drug: None
Personal:
Living: with family
Employment: Employed
Family History
Family History: Other (Noncontributory)
Review of Systems
Review of Systems
Allergies reviewed?: Yes
All Other Systems: ROS reviewed and negative except as documented in HPI and ROS
Constitutional: Reports no symptoms
EENT: Reports no symptoms
Respiratory: Reports no symptoms
Cardiac: Reports palpitations; Denies chest pain
ABD/GI: Reports no symptoms
: Reports no symptoms
Musculoskeletal: Reports no symptoms
Skin: Reports no symptoms
Neurological: Reports no symptoms
Endocrine: Reports no symptoms
Hematologic/Lymphatic: Reports no symptoms
Psychiatric: Reports no symptoms
Phy Exam
General Physical Exam
General Presentation: well appearing and mild distress
General age: appears stated age
General Skin: warm
General Habitus: normal
General Mental: alert
General Hydration: appears well hydrated
ENT Exam
ENT Exam: EOMI, pharynx normal, neck supple and normocephalic
Eye Exam
Eye Exam: PERRL, cornea clear and conjunctiva normal
Cardiovascular Exam
Cardiovascular Exam: irregularly irregular
Pulmonary Exam
Pulmonary Exam: lungs clear, no respiratory distress, no rales, no crackles, no rhonchi, no stridor, no wheezing and no cough
Gastrointestinal Exam
Gastrointestinal Exam: normal bowel sounds, non tender, soft, no organomegaly, no pulsatile mass and non distended
Neurological Exam
Neurological Exam: alert, oriented x3, no motor deficits and speech normal
Musculoskeletal Exam
Musculoskeletal Exam: full ROM and no edema
Skin Exam
Skin Exam: normal color, warm/dry, no rash and no petechia
Psychiatric Exam
Psychiatric Exam: normal mood/affect
Course
Orders/Labs/Results
Orders:
Orders
02/28/25 04:56
Electrocardiogram (*1) Urgent
Reason for Study: Atrial Fibrillation
EKG- Treatment ONCE
02/28/25 05:04
Basic Metabolic Panel Urgent
Comment: NO K
Complete Blood Count/With Diff Urgent
Diltiazem HCl [Cardizem] 20 mg IV NOW STA
02/28/25 05:15
Diltiazem 125 mg/125 ml Nss [Cardizem] 125 mg in 125 ml IV PER PROTOCOL
Initial dose in mg/hr, then titrate:: 5
Titrate to keep:: Heart rate 80-100 bpm
Titrate by mg/hr:: 5 mg/hr
Frequency of titrations (minutes):: 15
Maximum dose in mg/hr:: 15
02/28/25 05:30
Electrocardiogram (*1) Urgent
Reason for Study: Bradycardia / Tachycardia
EKG- Treatment ONCE
02/28/25 08:00
0.9% Sodium Chloride 1000 ml [Nss] 1,000 ml IV BOLUS
Abnormal Lab Results
02/28/25
05:04
RBC 5.53 H 10^6/uL
(4.20-5.40)
Hct 47.7 H %
(37.0-47.0)
Plt Count 30 L 10^3/uL
(130-400)
MPV 12.5 H fL
(7.4-10.4)
Chloride 108 H mmol/L
(98-107)
Creatinine 0.5 L mg/dL
(0.6-1.0)
Glucose 195 H mg/dl
(70-99)
02/28/25 05:04
02/28/25 05:04
Vital Signs
Initial and Last Documented VS:
Initial Vital Signs
Temp Pulse Resp BP Pulse Ox
98.0 F 118 20 133/81 94
02/28/25 04:45 02/28/25 04:45 02/28/25 04:45 02/28/25 04:45 02/28/25 04:45
Last Documented Vital Signs
Temp Pulse Resp BP Pulse Ox
98.0 F 60 16 100/63 96
02/28/25 04:45 02/28/25 09:20 02/28/25 09:10 02/28/25 09:30 02/28/25 09:15
*EKG
Interpreted by ED Provider?: Yes
Interpretation: abnormal
Comparison EKG: changes noted
Heart Rate: 117
Rate: tachycardiac
Rhythm: atrial flutter
[place]: normal axis
Interval: normal interval
QRS Pattern: normal QRS
Ischemia: no ischemia
*Critical Care Note
Total Time (30-74mins, 75-104mins- exclusive of procedures): Not Applicable
Update Note
Update Note:
5:39 AM: Patient converted to sinus bradycardia rate of 53 with normal intervals, normal axis. No evidence of acute ischemia present. Will continue to observe. Patient to be discharged after 1 hour if she remains in sinus rhythm.
ED Attending Note
-
Portions of this chart may have been created with voice recognition software.� Occasional wrong word or��sound alike� substitutions may have occurred due to the inherent limitations of voice recognition software.
Discharge Plan
Departure
Patient Disposition: Home (Routine Discharge)
Date of Disposition: 02/28/25
Time of Disposition: 05:59
Patient with high blood pressure during this ER visit?: Yes
Condition: Good
Discharge Problem:
Atrial flutter with rapid ventricular response, Atrial fibrillation
Prescriptions:
No Action
flecainide 100 mg Tablet
100 mg PO BID
magnesium oxide 500 mg magnesium Tablet
500 mg PO HS
metoprolol succinate 25 mg Tablet Extended Release 24 Hr
37.5 mg PO BID
Eliquis 5 mg Tablet
5 mg PO Q12H
Referrals:
Irene Ruff MD [Non-Admitting Privileges] - Call in 1-3 days for appt
Activity Restrictions/Additional Instructions:
Please continue to take your Eliquis
Thank You for choosing [facility].
It was a pleasure meeting you and taking part in your care. We hope for your continued healing and wellness.
Please read discharge instructions in their entirety. However, they are for general education and may not describe your exact diagnosis at discharge. Information on your ER visit and medical conditions were discussed with you along with appropriate
follow up information...
If indicated, please take your medications as instructed and indicated on discharge paperwork.
Please schedule a follow up appointment as directed. Call to schedule an appointment
Please return to the emergency department with ANY change in, persisting, or worsening of symptoms. If any of your symptoms do not improve, or persist, or become more severe within 6-12 hours, please return to the emergency department for further
care.
Please return to the emergency department if you develop a headache, neck pain/stiffness, fever greater than 100.4F, chest pain, shortness of breath, persistent nausea, vomiting, slurred speech, difficulty walking, numbness/tingling, weakness, signs
of infection or any other symptoms that are worrisome to you.
If you have any questions or concerns please do not hesitate to call the Hospital at or E-mail me directly at [email or web address]
Interventions
Interventions:
*Risk Screen - Suicide Last Done: 02/28/25 04:45
*General Assessment Last Done: 02/28/25 04:45
*Neglect/Abuse Screening Last Done: 02/28/25 04:45
*ED- Fall Risk Assessment Last Done: 02/28/25 04:45
*ED COVID-19 Vaccine History Last Done: 02/28/25 04:45
*Nursing Disposition Last Done: 02/28/25 09:39
ED- Cardiac Assessment Last Done: 02/28/25 05:04
ED- Pulmonary Assessment Last Done: 02/28/25 05:04
Discharge Date and Time
Discharge Date/Time: 02/28/25 09:40
Print Language: AZERI
[2025-02-28] MEDS: CARDIZEM 125 IV (05:19)
[2025-02-28] MEDS: CARDIZEM 20 MG IV (05:19)
[2025-02-28 05:28] LABS: % Basophils 0.7 % (0-2); % Eosinophils 2.6 % (0-6); % Immature Granulocytes 0.2 % (0-0.5); % Lymphocytes 35.5 % (20.5-51.1); % Monocytes 6.1 % (1.7-9.3); % Neutrophils 54.9 % (42.2-75.2); Absolute Basophils 0.1 10^3/uL (0-0.2); Absolute Eosinophils 0.2 10^3/uL (0-0.7); Absolute Lymphocytes 2.9 10^3/uL (1.2-3.4); Absolute Monocytes 0.5 10^3/uL (0.1-0.6); Absolute Neutrophils 4.4 10^3/uL (1.4-6.5); Hematocrit 47.7 % (37.0-47.0); Mean Corp Hgb Conc. 33.5 g/dL (33.0-37.0); Mean Corpuscular Hgb 28.9 pg (27.0-31.0); Mean Corpuscular Volume 86.3 fL (81.0-99.0); Nucleated Red Blood Cells % 0 %; Red Blood Cell Count 5.53 10^6/uL (4.20-5.40); Red Cell Dist. Width 12.9 % (11.5-14.5); White Blood Cell Count 8.1 10^3/uL (4.8-10.8)
[2025-02-28 05:42] LABS: Blood Urea Nitrogen 17 mg/dl (7-17); Calcium 9.2 mg/dl (8.4-10.2); Carbon Dioxide 24 mmol/L (22-30); Chloride 108 mmol/L (98-107); Estimated Creatinine Clearance 112 ml/min; Glucose 195 mg/dl (70-99); Sodium 141 mmol/L (135-145); eGFR > 60.00
[2025-02-28 05:48] LABS: Mean Platelet Volume 12.5 fL (7.4-10.4); Platelet Count 30 10^3/uL (130-400)
[2025-02-28] MEDS: NSS 1000 IV (08:13)
--- NOTE | 2025-02-28 09:18 | EDRN ---
Pt's SBP remains in the 90's. Pt was OOB to BR w/no symptoms of low BP. Pt to walk in hallway to see if symptomatic at this time. Pt received off jig and fixture repairer and declined being replaced on jig and fixture repairer. Pt states she is only feeling tired, no
dizziness.
--- NOTE | 2025-02-28 09:23 | EDRN ---
Pt on ambulating in hallway stated she felt loopy and lightheaded. Last HR 60 and 112/67 16 98% on RA post ambulating. Dr. Reid informed.
--- NOTE | 2025-02-28 09:30 | EDRN ---
Dr. Reid in room w/pt at this time.
== END 2025-02-28 09:40 | disposition home or self-care (01) ==
LOC: EMR 04:40
PROVIDERS: EMERGENCY PHYSICIAN Student in an Organized Health Care Education/Training Program; FAMILY PHYSICIAN Nurse Practitioner Family
DX: I48.92 Unspecified atrial flutter (principal); I48.0 Paroxysmal atrial fibrillation; E11.9 Type 2 diabetes mellitus without complications; G47.30 Sleep apnea, unspecified; J45.909 Unspecified asthma, uncomplicated; Z79.01 Long term (current) use of anticoagulants; Z87.891 Personal history of nicotine dependence; Z90.49 Acquired absence of other specified parts of digestive tract; Z85.42 Personal history of malignant neoplasm of other parts of uterus
CPT/HCPCS: 96374; 96361; 99284; 80048; 85025; 93005

== ENCOUNTER 2025-04-01 17:27 | Emergency (ER) | payer MEDICARE, OTHER, SELFPAY ==
[2025-04-01 17:33] VITALS: BP 143/77
--- NOTE | 2025-04-01 18:13 | ED.GENMED ---
History of Present Illness
General
Chief Complaint: Abdominal Symptoms
Source: patient
Exam Limitations: none
Time Seen by Provider: 04/01/25 18:06
History of Present Illness
History of Present Illness:
54-year-old female primarily here for episodes of intermittent palpitations. No syncope near syncope chest pain shortness of breath. Has had ongoing abdominal issues over weeks mostly with diarrhea. Diarrhea is actually significantly improved.
Only 1 episode today. No blood or mucus in the diarrhea. No fever. No significant abdominal pain seen by her primary physician's office and was sent for IV fluids.
Past History
Past History
ED Past Medical History: Arrthythmia (Atrial fib, PVC's, ), Asthma, Cancer (Uterine CA), NIDDM, Other (Renal calculus, UTI. Interstitial cystitis, ) and Other (History of kidney stones, IBS, Intracranial bleed, Sciatica, TBI, Sleep apnea, )
ED Past Surgical History: Appendectomy, Cardiac (Ablation, ), Gynecological (Hysterectomy with One ovary removed, ) and Orthopedic (Facial surgery, )
Social History
Tobacco: Former smoker
Alcohol: None
Drug: None
Personal:
Living: with family
Employment: Employed
Family History
Family History: Other (Noncontributory)
Review of Systems
Review of Systems
All Other Systems: Not applicable
Constitutional: Denies fever or chills
Respiratory: Reports no symptoms
Cardiac: Denies chest pain or syncope
Phy Exam
Physical Exam
Physical Exam:
GENERAL: Alert and oriented in no apparent distress
EYE: Orbits normal.
NECK: Supple, no thyroid palpable
ENT: Pharynx without erythema
CARDIAC: Regular rate and rhythm without any obvious murmurs.
LUNGS: Clear breath sounds,normal
ABDOMEN: Soft, without focal tenderness or distention
NEUROLOGICAL: Alert and oriented , grossly non-focal
SKIN: Warm and dry, no rash or lesion, no discoloration, skin intact.
MUSCULOSKELETAL: No edema,no deformity.Good color
PSYCH: Normal and appropriate interaction.
Course
Orders/Labs/Results
Orders:
Orders
04/01/25 17:38
Electrocardiogram (*1) Urgent
Reason for Study: Palpitations
EKG- Treatment ONCE
04/01/25 18:12
Electrocardiogram (*1) Stat
Reason for Study: Abdominal Pain
Cardiac Monitoring- Treatment ONCE
EKG- Treatment ONCE
IV Insert/Care/Rem.- Treatment PRN
STOOL [C difficile Antigen & Toxins] Urgent
ZOYA Source: Feces/Stool
Specimen Description:
Stool Culture Urgent
ZOYA Source: Feces/Stool
Specimen Description:
0.9% Sodium Chloride 1000 ml [Nss] 1,000 ml IV BOLUS
04/01/25 18:24
Complete Blood Count/With Diff Urgent
Comprehensive Metabolic Panel Urgent
Abnormal Lab Results
04/01/25
18:24
MCHC 32.9 L g/dL
(33.0-37.0)
Glucose 126 H mg/dl
(70-99)
04/01/25 18:24
04/01/25 18:24
Vital Signs
Initial and Last Documented VS:
Initial Vital Signs
Temp Pulse Resp BP Pulse Ox
98.4 F 66 16 143/77 97
04/01/25 17:33 04/01/25 17:33 04/01/25 17:33 04/01/25 17:33 04/01/25 17:33
Last Documented Vital Signs
Temp Pulse Resp BP Pulse Ox
98.4 F 59 20 143/77 98
04/01/25 17:33 04/01/25 19:30 04/01/25 19:30 04/01/25 17:33 04/01/25 19:30
MDM/Problems Addressed
Differential Diagnosis Includes:
Patient describing recent GI symptoms that are mostly resolved. She has a totally benign abdomen. No indication for radiologic testing. Stool culture was ordered although with only 1 stool today will be unlikely to give this 1. Primarily here
because of episodes of intermittent skipped beats. Her description is not concerning for any episodes of V. tach. No syncope near syncope no chest pain or shortness of breath. Just occasional skipped beats. Her QT interval is mildly long. She
is on flecainide. Her cardiology group was notified for follow-up. We will give her IV fluids and will likely be discharged to follow-up
*Pulse Oximetry
Patient hypoxic: no (97%)
*EKG
Interpreted by ED Provider?: Yes
Interpretation: abnormal
Comparison EKG: changes noted
Heart Rate: 61
Rate: normal
Rhythm: sinus
[place]: normal axis
Interval: long QT
QRS Pattern: normal QRS
Ischemia: non-specific ST changes
*Critical Care Note
Total Time (30-74mins, 75-104mins- exclusive of procedures): Not Applicable
Data Reviewed
Review of Other/Old Records Reveals: Labs, Records and Testing
Update Note
Update Note:
Patient has remained stable and nontoxic. Patient's cardiology group was made aware of the longer QT interval. They will follow this up. She has had no significant arrhythmias here. She did have a 3-4 beat run of what appeared more like atrial
fibrillation. No prolonged V. tach. No unusual arrhythmias. Medically stable for discharge
ED Attending Note
-
Portions of this chart may have been created with voice recognition software.� Occasional wrong word or��sound alike� substitutions may have occurred due to the inherent limitations of voice recognition software.
Discharge Plan
Departure
Patient Disposition: Home (Routine Discharge)
Date of Disposition: 04/01/25
Time of Disposition: 20:00
Patient with high blood pressure during this ER visit?: Yes
Discharge Problem:
Palpitations, History of atrial fibrillation, Dehydration/diarrhea, Long QT
Instructions: Dehydration, Adult (DC), Long QT syndrome, Palpitations - ED discharge instructions, BLOOD PRESSURE
Prescriptions:
No Action
flecainide 100 mg Tablet
100 mg PO BID
magnesium oxide 500 mg magnesium Tablet
500 mg PO HS
metoprolol succinate 25 mg Tablet Extended Release 24 Hr
37.5 mg PO BID
Eliquis 5 mg Tablet
5 mg PO Q12H
Referrals:
Shani Gao MD [Family Provider, Family Practice]
Activity Restrictions/Additional Instructions:
Call your endocrinology teacher tomorrow for follow-up get rechecked with persistent or worsening diarrhea fever abdominal pain etc.
Return immediately with any episodes of passing out or feeling like you are going to pass out chest pain shortness of breath etc.
Interventions
Interventions:
*Risk Screen - Suicide Last Done: 04/01/25 17:33
*General Assessment Last Done: 04/01/25 18:20
*Neglect/Abuse Screening Last Done: 04/01/25 17:33
*ED- Fall Risk Assessment Last Done: 04/01/25 18:20
*ED COVID-19 Vaccine History Last Done: 04/01/25 18:20
EB-[id number] Assessment Last Done: 04/01/25 18:20
Discharge Date and Time
Print Language: [id number]
[2025-04-01] MEDS: NSS 1000 IV (18:24)
[2025-04-01 18:38] LABS: % Basophils 0.8 % (0-2); % Eosinophils 2.1 % (0-6); % Immature Granulocytes 0.3 % (0-0.5); % Lymphocytes 27.3 % (20.5-51.1); % Neutrophils 62.5 % (42.2-75.2); Absolute Basophils 0.1 10^3/uL (0-0.2); Absolute Eosinophils 0.2 10^3/uL (0-0.7); Absolute Lymphocytes 2.1 10^3/uL (1.2-3.4); Absolute Monocytes 0.5 10^3/uL (0.1-0.6); Absolute Neutrophils 4.8 10^3/uL (1.4-6.5); Hematocrit 44.1 % (37.0-47.0); Hemoglobin 14.5 g/dL (12.0-16.0); Mean Corp Hgb Conc. 32.9 g/dL (33.0-37.0); Mean Corpuscular Hgb 29.4 pg (27.0-31.0); Mean Corpuscular Volume 89.3 fL (81.0-99.0); Mean Platelet Volume 8.9 fL (7.4-10.4); Nucleated Red Blood Cells % 0 %; Platelet Count 284 10^3/uL (130-400); Red Blood Cell Count 4.94 10^6/uL (4.20-5.40); Red Cell Dist. Width 13.8 % (11.5-14.5); White Blood Cell Count 7.7 10^3/uL (4.8-10.8)
[2025-04-01 18:57] LABS: ALT (SGPT) 15 U/L (0-35); AST (SGOT) 23 U/L (14-36); Albumin 4.2 g/dl (3.5-5.0); Alkaline Phosphatase 116 U/L (38-126); Blood Urea Nitrogen 12 mg/dl (7-17); Calcium 9.4 mg/dl (8.4-10.2); Carbon Dioxide 26 mmol/L (22-30); Chloride 107 mmol/L (98-107); Glucose 126 mg/dl (70-99); Potassium 4.3 mmol/L (3.5-5.1); Sodium 140 mmol/L (135-145); Total Bilirubin 0.7 mg/dl (0.2-1.3); Total Protein 6.8 g/dl (6.3-8.2); eGFR > 60.00
== END 2025-04-01 20:30 | disposition home or self-care (01) ==
LOC: EMR 17:27
PROVIDERS: EMERGENCY PHYSICIAN Emergency Medicine; FAMILY PHYSICIAN Family Medicine
DX: R00.2 Palpitations (principal); I48.91 Unspecified atrial fibrillation; E86.0 Dehydration; I45.81 Long QT syndrome; E11.9 Type 2 diabetes mellitus without complications; G47.30 Sleep apnea, unspecified; J45.909 Unspecified asthma, uncomplicated; Z87.891 Personal history of nicotine dependence
CPT/HCPCS: 96360; 99284; 80053; 85025; 93005

== ENCOUNTER 2025-04-28 07:39 | Emergency (ER) | payer MEDICARE, OTHER, SELFPAY ==
[2025-04-28] VITALS (10 sets, daily range): BP systolic 87–146; BP diastolic 39–88; BMI 34.4
[2025-04-28] MEDS: NSS 1000 IV (08:15)
[2025-04-28 08:16] LABS: Hematocrit 48.8 % (37.0-47.0); Hemoglobin 16.1 g/dL (12.0-16.0); Mean Corp Hgb Conc. 33.0 g/dL (33.0-37.0); Mean Corpuscular Volume 89.5 fL (81.0-99.0); Nucleated Red Blood Cells % 0 %; Platelet Count 327 10^3/uL (130-400); Red Cell Dist. Width 14.0 % (11.5-14.5)
[2025-04-28] MEDS: CARDIZEM 15 MG IV (08:16)
[2025-04-28 08:22] LABS: ALT (SGPT) 15 U/L (0-35); AST (SGOT) 20 U/L (14-36); Albumin 4.4 g/dl (3.5-5.0); Alkaline Phosphatase 119 U/L (38-126); Blood Urea Nitrogen 13 mg/dl (7-17); Calcium 9.5 mg/dl (8.4-10.2); Carbon Dioxide 31 mmol/L (22-30); Chloride 107 mmol/L (98-107); Estimated Creatinine Clearance 110 ml/min; Glucose 146 mg/dl (70-99); Potassium 4.2 mmol/L (3.5-5.1); Sodium 142 mmol/L (135-145); Total Protein 7.3 g/dl (6.3-8.2); eGFR > 60.00
--- NOTE | 2025-04-28 08:27 | ED.GENMED ---
History of Present Illness
General
Chief Complaint: Chest Pain
Time Seen by Provider: 04/28/25 08:08
History of Present Illness
History of Present Illness:
54-year-old female with history of A-fib on Eliquis and metoprolol presenting to the emergency department for concern of A-fib. Reports this morning when she got up, something abnormal in her chest going up to her neck. Since that she has had
similar in the past with her A-fib. Also reports history of SVT. She notes that she follows with cardiology through [facility]. She took an extra dose of her metoprolol as directed by her ultrasound technician this morning. Notes history of
ablation x 2, 1 failed ablation. Initially reported some chest pain, denies any present chest pain. Reports palpitations. Denies difficulty breathing or abdominal pain. Explains in the past month she has had to come to the ER for this, had
improvement after diltiazem. Denies additional acute medical
Past History
Past History
ED Past Medical History: Arrthythmia (Atrial fib, PVC's, ), Asthma, Cancer (Uterine CA), NIDDM, Other (Renal calculus, UTI. Interstitial cystitis, ) and Other (History of kidney stones, IBS, Intracranial bleed, Sciatica, TBI, Sleep apnea, )
ED Past Surgical History: Appendectomy, Cardiac (Ablation, ), Gynecological (Hysterectomy with One ovary removed, ) and Orthopedic (Facial surgery, )
Social History
Tobacco: Former smoker
Alcohol: None
Drug: None
Personal:
Living: with family
Employment: Employed
Family History
Family History: Other (Noncontributory)
Phy Exam
Physical Exam
Physical Exam:
General: Well-appearing, no clinical signs of dehydration, nontoxic and in no acute distress
HEENT: protecting airway
Neck: appears supple
CV: Irregularly irregular rhythm, tachycardia.
Resp: No accessory muscle use, no increased work of breathing, lungs clear to auscultation bilaterally
Abd: Soft and non-distended, no tenderness to palpation, normal bowel sounds
Extremities: No deformities, no swelling
Neuro: alert, no focal neurologic deficit
: deferred
Rectal: deferred
Psych: Normal affect
Skin: Intact
Scores
Heart Score for Chest Pain Patients
STEMI patient?: No
History: Slightly or Non-Suspicious
ECG: Nonspecific Repolarization
Age: >45 - <65 years
Risk Factors: 1 or 2 Risk Factors
Troponin: </= Normal Limit
Heart Score for Chest Pain Patients: 3
Heart Score Risk: 2.5% MACE over next 6 weeks
Course
Orders/Labs/Results
Orders:
Orders
04/28/25 07:42
EKG [Electrocardiogram (*1)] Urgent
Reason for Study: Atrial Fibrillation
04/28/25 07:43
EKG- Treatment ONCE
04/28/25 07:57
Complete Blood Count/With Diff Urgent
Comprehensive Metabolic Panel Urgent
Troponin I Urgent
04/28/25 08:08
0.9% Sodium Chloride 1000 ml [Nss] 1,000 ml IV BOLUS
Diltiazem HCl [Cardizem] 15 mg IV NOW STA
04/28/25 08:20
PT/INR [Prothrombin Time] Urgent
PTT Urgent
04/28/25 08:26
Electrocardiogram (*1) Urgent
Reason for Study: Chest Pain
EKG- Treatment ONCE
Abnormal Lab Results
04/28/25
07:57
RBC 5.45 H 10^6/uL
(4.20-5.40)
Hgb 16.1 H g/dL
(12.0-16.0)
Hct 48.8 H %
(37.0-47.0)
Carbon Dioxide 31 H mmol/L
(22-30)
Glucose 146 H mg/dl
(70-99)
04/28/25 07:57
04/28/25 07:57
Vital Signs
Initial and Last Documented VS:
Initial Vital Signs
Temp Pulse Resp BP Pulse Ox
97.9 F 90 18 146/84 96
04/28/25 07:48 04/28/25 07:48 04/28/25 07:48 04/28/25 07:48 04/28/25 07:48
Last Documented Vital Signs
Temp Pulse Resp BP Pulse Ox
98.2 F 55 16 92/58 96
04/28/25 09:43 04/28/25 10:50 04/28/25 10:50 04/28/25 10:50 04/28/25 10:50
MDM/Problems Addressed
MDM/Problems Addressed:
54-year-old female with history of A-fib presenting for palpitations and chest pain. Vital signs on arrival significant for tachycardia.
On exam patient is resting comfortably, no acute distress or discomfort. EKG obtained on arrival, consistent with a flutter, however nonspecific ST and T wave changes, suspected to be rate dependent. Patient currently without chest pain. Without
present concern for STEMI. Suspect symptoms related to A-fib/a flutter. Will rate control and repeat EKG. Noticed improvement in the past with IV diltiazem. Will try IV diltiazem
08:50 - After IV diltiazem, patient now sinus rhythm, slightly bradycardic. IV fluid started. EKG much improved, no acute ischemic abnormality. Laboratory analysis unremarkable, negative troponin. Will continue to monitor with likely plan for
outpatient cardiac follow-up
*Pulse Oximetry
SaO2: 97
Oxygen Mode of Delivery: Room air
Patient hypoxic: no
*EKG
Interpreted by ED Provider?: Yes
EKG Intrepretation Date: 04/28/25
EKG Intrepretation Time: 08:56
Interpretation: abnormal
Comparison EKG: no changes
Heart Rate: 116
Rate: tachycardiac
Rhythm: atrial flutter
[place]: normal axis
QRS Pattern: normal QRS
Ischemia: non-specific ST changes
*Critical Care Note
Total Time (30-74mins, 75-104mins- exclusive of procedures): Not Applicable
ED Attending Note
-
Portions of this chart may have been created with voice recognition software.� Occasional wrong word or��sound alike� substitutions may have occurred due to the inherent limitations of voice recognition software.
Discharge Plan
Departure
Patient Disposition: Home (Routine Discharge)
Date of Disposition: 04/28/25
Time of Disposition: 10:16
Patient with high blood pressure during this ER visit?: No
Condition: Good
Discharge Problem:
Atrial flutter with rapid ventricular response
Instructions: Atrial flutter - Discharge instructions
Prescriptions:
No Action
flecainide 100 mg Tablet
100 mg PO BID
magnesium oxide 500 mg magnesium Tablet
500 mg PO HS
metoprolol succinate 25 mg Tablet Extended Release 24 Hr
37.5 mg PO BID
Eliquis 5 mg Tablet
5 mg PO Q12H
Referrals:
Riana Parsons CRNP [Family Provider]
Activity Restrictions/Additional Instructions:
You were seen in the emergency department for elevated heart rate
You were found to have atrial flutter. You were given diltiazem with improvement of your heart rate and your rhythm. You are now in a normal sinus rhythm. Please call your ultrasound technician in the next 1 to 2 days for follow-up appointment.
Please follow-up closely with your primary care physician.
Return to the emergency department for any worsening of your symptoms, or any development of chest pain, difficulty breathing, abdominal pain with persistent vomiting and inability to tolerate food or liquid by mouth (concern for dehydration),
weakness, headache or confusion, fever greater than 100.4, or any additional symptoms that are concerning to you.
Thank you for choosing [facility].
Interventions
Interventions:
*Risk Screen - Suicide Last Done: 04/28/25 07:48
*General Assessment Last Done: 04/28/25 08:22
*Neglect/Abuse Screening Last Done: 04/28/25 08:22
*ED- Fall Risk Assessment Last Done: 04/28/25 08:22
*ED COVID-19 Vaccine History Last Done: 04/28/25 08:22
*Nursing Disposition Last Done: 04/28/25 10:50
ED- Cardiac Assessment Last Done: 04/28/25 08:22
Discharge Date and Time
Discharge Date/Time: 04/28/25 11:16
Print Language: ARABIC
[2025-04-28 08:32] LABS: Troponin I < 0.012 ng/ml
[2025-04-28 08:40] LABS: APTT 30.2 Sec (23.4-35.0); INR 1.06; PT 14.1 Sec (11.4-14.6)
== END 2025-04-28 11:16 | disposition home or self-care (01) ==
LOC: EMR 07:39
PROVIDERS: EMERGENCY PHYSICIAN Student in an Organized Health Care Education/Training Program; FAMILY PHYSICIAN Nurse Practitioner Family; OTHER PHYSICIAN Internal Medicine Cardiovascular Disease
DX: I48.92 Unspecified atrial flutter (principal); I48.91 Unspecified atrial fibrillation; J45.909 Unspecified asthma, uncomplicated; E11.9 Type 2 diabetes mellitus without complications; G47.30 Sleep apnea, unspecified; K58.9 Irritable bowel syndrome, unspecified; M54.30 Sciatica, unspecified side; Z79.01 Long term (current) use of anticoagulants; Z85.42 Personal history of malignant neoplasm of other parts of uterus; Z87.442 Personal history of urinary calculi; Z87.440 Personal history of urinary (tract) infections; Z87.820 Personal history of traumatic brain injury; Z87.891 Personal history of nicotine dependence; Z88.1 Allergy status to other antibiotic agents; Z88.5 Allergy status to narcotic agent; Z88.8 Allergy status to other drugs, medicaments and biological substances
CPT/HCPCS: 99284; 96374; 96361; 80053; 84484; 85025; 85610; 85730; 93005

== ENCOUNTER 2025-05-12 00:01 | Emergency (ER) | payer MEDICARE, OTHER, SELFPAY ==
[2025-05-12] VITALS (11 sets, daily range): BP systolic 105–158; BP diastolic 58–108; BMI 34.7
[2025-05-12 01:05] LABS: Hematocrit 46.6 % (37.0-47.0); Hemoglobin 15.6 g/dL (12.0-16.0); Mean Corp Hgb Conc. 33.5 g/dL (33.0-37.0); Mean Corpuscular Volume 88.8 fL (81.0-99.0); Nucleated Red Blood Cells % 0 %; Platelet Count 305 10^3/uL (130-400); Red Cell Dist. Width 13.9 % (11.5-14.5)
[2025-05-12 01:19] LABS: Blood Urea Nitrogen 8 mg/dl (7-17); Calcium 9.6 mg/dl (8.4-10.2); Carbon Dioxide 26 mmol/L (22-30); Chloride 107 mmol/L (98-107); Estimated Creatinine Clearance 111 ml/min; Glucose 153 mg/dl (70-99); Sodium 140 mmol/L (135-145); eGFR > 60.00
--- NOTE | 2025-05-12 01:20 | ED.GENMED ---
History of Present Illness
General
Chief Complaint: Chest Pain
Source: patient and family
Time Seen by Provider: 05/12/25 00:38
History of Present Illness
History of Present Illness:
This patient is a 54-year-old female with a history of A-fib flutter. She states that she takes metoprolol every day as well as anticoagulation. Since Monday, she states she has been experiencing PVCs as noted on her monitor associated with
fluttering. She was advised by her big data developer on Monday, because her blood pressure has been 'running low', to discontinue her metoprolol. Her typical dosing is 25 mg twice a day. She did not take metoprolol Monday evening, and all day
Monday. However, at around 11 PM tonight she also started to feel lightheaded associated with chest discomfort and dyspnea which prompted her visit here. She did take a dose of metoprolol 12.5 mg. She feels much better now but still notes
dizziness/lightheadedness. She denies chest pain currently. She denies abdominal pain, nausea, vomiting, or other complaints.
Past History
Past History
ED Past Medical History: Arrthythmia (Atrial fib, PVC's, ), Asthma, Cancer (Uterine CA), NIDDM, Other (Renal calculus, UTI. Interstitial cystitis, ) and Other (History of kidney stones, IBS, Intracranial bleed, Sciatica, TBI, Sleep apnea, )
ED Past Surgical History: Appendectomy, Cardiac (Ablation, ), Gynecological (Hysterectomy with One ovary removed, ) and Orthopedic (Facial surgery, )
Social History
Tobacco: Former smoker
Alcohol: None
Drug: None
Personal:
Living: with family
Employment: Employed
Family History
Family History: Other (Noncontributory)
Phy Exam
Physical Exam
Physical Exam:
GENERAL: Alert , in no apparent distress
EYE: L pupil Round and reactive, R eye artificial
NECK: Supple, no significant adenopathy.
ENT: o/p clr, mmm.
HEART: Irreg irreg
LUNGS: Clear breath sounds bilaterally, no acute respiratory distress, no wheezes/rales/rhonchi
ABDOMEN: Soft, without focal tenderness, no r/g, no cvat
NEUROLOGICAL: Alert and oriented, no focal neuro deficits
SKIN: Warm and dry, skin intact.
MUSCULOSKELETAL: No edema, well perfused.
PSYCH: Normal and appropriate interaction.
Scores
Heart Score for Chest Pain Patients
STEMI patient?: Not applicable
Course
Orders/Labs/Results
Orders:
Orders
05/12/25 00:18
Electrocardiogram (*1) Urgent
Reason for Study: Other
Other Reason for Exam: Respiratory Distress
Cardiac Monitoring- Treatment ONCE
EKG- Treatment ONCE
IV Insert/Care/Rem.- Treatment PRN
CR Chest - 2 Views Urgent
Comment:
Reason For Exam: respiratory distress
O2 Therapy [RESP] Urgent
Titrate/Wean O2 to maintain O2 sat greater than (%): 93
Special Instructions: TO MAINTAIN CONTINUOUS O2 SATS >/= 93%
Pulse Ox/cont/shift [RESP] Urgent
Quantity: 1
Special Instructions: continuous pulse ox
05/12/25 00:56
Basic Metabolic Panel Urgent
Complete Blood Count/With Diff Urgent
NT-proBNP Urgent
Troponin I Urgent
05/12/25 01:20
0.9% Sodium Chloride 1000 ml [Nss] 1,000 ml IV BOLUS
Diltiazem HCl [Cardizem] 20 mg IV NOW STA
05/12/25 01:56
EKG [Electrocardiogram (*1)] Urgent
Reason for Study: Abnormal EKG
05/12/25 01:57
EKG- Treatment ONCE
05/12/25 02:44
Diltiazem HCl [Cardizem] 5 mg IV NOW STA
05/12/25 03:21
Metoprolol [Lopressor] 5 mg IV NOW STA
Abnormal Lab Results
05/12/25
00:56
Creatinine 0.5 L mg/dL
(0.6-1.0)
Glucose 153 H mg/dl
(70-99)
05/12/25 00:56
05/12/25 00:56
Vital Signs
Initial and Last Documented VS:
Initial Vital Signs
Temp Pulse Resp BP Pulse Ox
98.5 F 66 20 158/108 97
05/12/25 00:11 05/12/25 00:11 05/12/25 00:11 05/12/25 00:11 05/12/25 00:11
Last Documented Vital Signs
Temp Pulse Resp BP Pulse Ox
98.5 F 112 18 120/80 99
05/12/25 00:11 05/12/25 05:21 05/12/25 05:21 05/12/25 05:21 05/12/25 05:21
*Pulse Oximetry
SaO2: 96
Oxygen Mode of Delivery: Room air
Patient hypoxic: no
*Critical Care Note
Total Time (30-74mins, 75-104mins- exclusive of procedures): Not Applicable
Update Note
Update Note:
Patient presents to the Emergency Department with lightheaded,cp, sob____
Number and Complexity of Problems Addressed at the Encounter
� Chronic conditions affecting care:
� Acute Exacerbation and/or Progression of Chronic Illness:
� Differential Diagnosis includes:but not limited to afib, aflutter, electrolyte d/o, etc etc etc
Amount and/or Complexity of Data to be Reviewed and Analyzed
� I performed an independent evaluation of and my interpretation is:
EKG:alutter with rvr, nonspec st/t, unchanged from prior
CT:
Xrays:cxr nad
Laboratory Studies: Generally unremarkable
Other:
� Review of other/old records reveals:
� Clinical information was obtained by an independent historian:
� Prescriptions/Medications Considered but not given:
� Further testing considered but not performed:
Risk of Complications and/or Morbidity or Mortality of Patient Management
� Social determinants of health affecting care:
� Discussion with other providers (PCP, Hospitalists, Consultants, etc):
� Escalation of care including admission/observation vs risk of discharge considered: 206 am rate decreased, repeat ecg aflutter 106.
2:42 AM patient walked to bathroom without difficulty, heart rate 103 here patient feels better. Recommendation is for patient to receive the rest of her IV fluids and be discharged home, continue anticoagulation, resume metoprolol in the morning
and close follow-up with her big data developer.
ED Attending Note
-
Portions of this chart may have been created with voice recognition software.� Occasional wrong word or��sound alike� substitutions may have occurred due to the inherent limitations of voice recognition software.
Discharge Plan
Departure
Patient Disposition: Home (Routine Discharge)
Date of Disposition: 05/12/25
Time of Disposition: 05:09
Patient with high blood pressure during this ER visit?: Yes
Condition: Good
Discharge Problem:
Atrial flutter with rapid ventricular response
Instructions: Atrial fibrillation and atrial flutter - ED discharge instructions, BLOOD PRESSURE
Prescriptions:
No Action
flecainide 100 mg Tablet
100 mg PO BID
magnesium oxide 500 mg magnesium Tablet
500 mg PO HS
metoprolol succinate 25 mg Tablet Extended Release 24 Hr
37.5 mg PO BID
Eliquis 5 mg Tablet
5 mg PO Q12H
Referrals:
UNKNOWN - PT DOES,NOT KNOW [Family Provider]
Activity Restrictions/Additional Instructions:
PLEASE RESUME YOUR METOPROLOL IN THE MORNING. PLEASE CONTACT YOUR DIRECTOR OF COUNTERINTELLIGENCE IN THE MORNING. IF YOU DEVELOP DIZZINESS, CHEST PAIN, ABDOMINAL PAIN, VOMITING, OR OTHER WORRISOME SIGNS, PLEASE RETURN TO THE ER IMMEDIATELY EXCLAMATION
Interventions
Interventions:
*Risk Screen - Suicide Last Done: 05/12/25 00:11
*General Assessment Last Done: 05/12/25 00:11
*Neglect/Abuse Screening Last Done: 05/12/25 00:11
*ED- Fall Risk Assessment Last Done: 05/12/25 00:11
*ED COVID-19 Vaccine History Last Done: 05/12/25 00:11
*Nursing Disposition Last Done: 05/12/25 05:21
ED- Cardiac Assessment Last Done: 05/12/25 00:46
ED- Pulmonary Assessment Last Done: 05/12/25 00:46
Discharge Date and Time
Discharge Date/Time: 05/12/25 05:30
Print Language: CHINESE
[2025-05-12 01:35] LABS: Troponin I < 0.012 ng/ml
[2025-05-12] MEDS: NSS 1000 IV (01:35)
[2025-05-12] MEDS: CARDIZEM 20 MG IV (01:37)
[2025-05-12] MEDS: CARDIZEM 5 MG IV (02:53)
[2025-05-12] MEDS: LOPRESSOR 5 MG IV (03:31)
== END 2025-05-12 05:30 | disposition home or self-care (01) ==
LOC: EMR 00:01
PROVIDERS: Emergency Medicine; EMERGENCY PHYSICIAN Emergency Medicine
DX: I48.92 Unspecified atrial flutter (principal); I48.91 Unspecified atrial fibrillation; I49.3 Ventricular premature depolarization; J45.909 Unspecified asthma, uncomplicated; K58.9 Irritable bowel syndrome, unspecified; G47.30 Sleep apnea, unspecified; E11.9 Type 2 diabetes mellitus without complications; Z79.01 Long term (current) use of anticoagulants; Z79.899 Other long term (current) drug therapy; Z85.42 Personal history of malignant neoplasm of other parts of uterus; Z87.440 Personal history of urinary (tract) infections; Z87.442 Personal history of urinary calculi; Z87.891 Personal history of nicotine dependence; Z90.49 Acquired absence of other specified parts of digestive tract; Z90.710 Acquired absence of both cervix and uterus; Z90.721 Acquired absence of ovaries, unilateral
CPT/HCPCS: 99283; 96374; 96375; 96376; 96361; 71046; 80048; 83880; 84484; 85025; 93005